=== PATIENT | female | born 1950 | race Caucasian/White ===

== ENCOUNTER → 2018-10-16 09:42 | Outpatient (CLI) | payer MEDICARE, OTHER, SELFPAY ==
--- NOTE | 2018-10-16 | DI.MG.S_ITS ---
BILATERAL DIGITAL SCREENING MAMMOGRAM 3D/2D WITH CAD POST LUMPECTOMY: 10/16/2018 CLINICAL: Routine screening. Personal history of left breast cancer. Comparison is made to exams dated: 08/20/2017 mammogram, 08/20/2016 mammogram, and 08/29/2015 mammogram - [facility]. The tissue of both breasts is heterogeneously dense. This may lower the sensitivity of mammography. Current study was also evaluated with a Computer Aided Detection (CAD) system. There are benign post operative findings in the left breast. No significant masses, calcifications, or other findings are seen in either breast. There has been no significant interval change. IMPRESSION: There is no mammographic evidence of malignancy. A 1 year screening mammogram is recommended. This exam was interpreted at Station ID: [id number]. NOTE: For mammograms, a report in lay terms will be sent to the patient. Approximately 15% of breast malignancies will not be visualized mammographically. In the management of a palpable breast mass, a negative mammogram must not discourage biopsy of a clinically suspicious lesion. Electronically Signed By: Henry silva/paulino:10/16/2018 16:59:04 letter sent: Normal Exam ACR BI-RADS Category 2: Benign Finding(s) 3342F
== END ==
PROVIDERS: Visit Provider Family Medicine
DX: Z12.31 Encounter for screening mammogram for malignant neoplasm of breast (principal)
CPT/HCPCS: 77063; 77067

== ENCOUNTER 2019-09-08 13:31 | Day surgery (SDC) | payer MEDICARE, OTHER, SELFPAY ==
[2019-09-08] VITALS (14 sets, daily range): BP systolic 144–190; BP diastolic 77–91; PULSE 60–73; RESP 10–16; TEMP 36–36.6; O2SAT 93–98; BMI 21.1
--- NOTE | 2019-09-08 | PATH_ITS ---
[facility] Accession Number: [id number] . 01 Material submitted: . PART A: cecum - CECAL POLYP PART B: gastrointestinal site - GASTRIC PYLORUS BIOPSIES PART C: gastrointestinal site - GASTRIC FUNDUS BIOPSIES PART D: esophagus, E-G Junction - GE JUNCTION BIOPSIES . 01 Clinical history: . SCREENING COLONOSCOPY . 02 Diagnosis: A. Cecum, Polyp, Biopsy: Tubular adenoma. . B. Stomach, Pylorus, Biopsy: Antral mucosa with mild chronic inflammation and intestinal metaplasia. Negative for Helicobacter by immunohistochemistry. Negative for dysplasia and malignancy. . C. Stomach, Fundus, Biopsies: Body-type mucosa with mild chronic gastritis. Negative for Helicobacter by immunohistochemistry. Negative for intestinal metaplasia. Negative for dysplasia and malignancy. . D. Gastroesohageal Junction, Biopsies: Squamocolumnar junctional mucosa with no diagnostic abnormality. Negative for intestinal metaplasia. Negative for dysplasia and malignancy. . [facility] 09/11/2019 1438 Local . 02 Electronically signed: . Marya Navarro MD, Pathologist NPI- [id number] . 01 Gross description: . Part A: CECAL POLYP: Received in formalin are 2 fragment(s) of paulino, soft tissue measuring 0.1 x 0.1 x 0.1 cm to 0.3 x 0.3 x 0.2 cm submitted entirely in 1 cassette(s) Part B: GASTRIC PYLORUS BIOPSIES: Received in formalin are 2 fragment(s) of paulino, soft tissue measuring 0.1 x 0.1 x 0.1 cm to 0.2 x 0.1 x 0.1 cm submitted entirely in 1 cassette(s) Part C: GASTRIC FUNDUS BIOPSIES: Received in formalin is 1 fragment(s) of paulino, soft tissue measuring 0.2 x 0.2 x 0.2 cm submitted entirely in 1 cassette(s) Part D: GE JUNCTION BIOPSIES: Received in formalin are multiple fragment(s) of paulino, soft tissue measuring 0.1 x 0.1 x 0.1 cm to 0.2 x 0.1 x 0.1 cm submitted entirely in 1 cassette(s) /[facility] 09/09/2019 1924 Local . 02 Microscopic: . B-C: Immunohistochemical stains for Helicobacter were performed on blocks B and C in order to evaluate for Helicobacter organisms. They are both negative. The control stain showed appropriate reactivity. . B-D: Alcian blue stains were performed to evaluate for intestinal metaplasia in blocks B-D and is positive in block B and negative in blocks C and D. The control stain showed appropriate reactivity. . * This test was developed and its performance characteristics determined by [employer]. It has not been cleared or approved by the U.S. Food and Drug Administration. The FDA has determined that such clearance or approval is not necessary. This test is used for clinical purposes. It should not be regarded as investigational or for research. . 02 Pathologist provided ICD-10: D12.0 . 02 CPT . 226929, 757049, 126675, 907989, 781342, 838022, 954316, D41017 Performed at: 01 [facility] [address] [id number] MD Henry Badillo MD Phone: [phone] Performed at: 02 [facility] [address] [place] [id number] MD Marya Navarro MD Phone: [phone]
[2019-09-08] MEDS: SODIUM CHLORIDE 0.9% 1,000 ML 200 ML IV ×2 (13:52→17:50)
--- NOTE | 2019-09-08 14:51 | PM.HP.1 ---
History of Present Illness History of Present Illness Date Patient Seen: 09/08/19 Time Patient Seen: 14:51 Chief complaint: [id number] SCREENING COLONOSCOPY W/EGD Narrative: This is a 68-year-old woman with history of colon polyps found on colonoscopy 3 years ago. She also has intermittent left lower quadrant pain, but does not recall a diagnosis of diverticulosis or diverticulitis. She takes psyllium husk every day as a fiber supplement. She denies any melena, hematochezia or unexplained weight loss. She complains of reflux symptoms for the past 5 months, but does not have a diagnosis of acid reflux. She has never had an upper endoscopy, and is not on a PPI. She has a heart murmur, but says she has never had any symptoms of chest pain, and has never had a heart attack or stroke. She feels she is otherwise relatively well. ROS: Thirteen system review is negative other than as mentioned in scanned in questionnaire and in HPI. PE: GENERAL: Well groomed and cooperative. Appears stated age. Answers questions promptly and appropriately. Vital signs noted. HENT: Normocephalic, atraumatic. Hearing intact. Oral mucosa is pink and moist. EYES: Conjunctiva pink, sclera white, no periorbital swelling. CARDIOVASCULAR: Regular rate. No pedal edema. RESPIRATORY: Non tachypneic, breathing comfortably on room air. GASTROINTESTINAL: Abdomen soft and non-distended GENITALURINARY: No flank tenderness. MUSCULOSKELETAL: Equal tone and mass bilaterally. SKIN: Warm, dry, soft, appropriate color for ethnicity. No other lesions, rashes, or wounds. NEURO: Alert and Oriented X 3. No gross sensory deficits, or cognitive issues. PSYCH: Appropriate affect and mood. Patient History Medical History Cataracts, bilateral (Chronic ~2017) Chicken pox (Resolved) CKD (chronic kidney disease) (Chronic) Essential hypertension (Chronic) Fractures (Resolved ~1971) Hearing loss (Chronic) Heart murmur (Acute) History of rheumatic fever (Acute) Hx of breast cancer (Resolved ~1999) Hyperlipidemia (Chronic) Measles (Resolved) Mumps (Resolved) Recurrent sinusitis (Chronic) Rheumatic fever (Resolved) Surgical History Amputation of finger (Resolved ~1969) Anesthesia (Resolved) History of colonoscopy (Acute) History of foot surgery (Resolved) S/P lumpectomy, left breast (Acute ~1999) Family & Social History Family History Father History of heart disease Grandfather History of heart disease Grandmother Blood disorder Grandfather History of heart disease Social History: household members spouse Tobacco & Substance use: Smoking Status Never smoker Meds Home Medications and Allergies Home Medications Medication Instructions Recorded Confirmed Type sodium,potassium,mag sulfates 17.5 177 ml PO DAILY #354 ml 08/19/19 Rx gram-3.13 gram-1.6 gram oral soln atorvastatin 10 mg PO DAILY 09/08/19 09/08/19 History Allergies Allergy/AdvReac Type Severity Reaction Status Date / Time shellfish derived AdvReac Severe severe Verified 09/08/19 14:03 abdominal pain Exam Vital Signs (past 8 hours): - 09/08/19 13:53 Temperature 97.4 F L Pulse Rate 70 Respiratory Rate 14 Blood Pressure 144/81 H Pulse Oximetry 98 Oxygen Delivery Method Room Air Assessment & Plan Assessment and plan (1) Symptoms of gastroesophageal reflux: Current visit: Yes Status: Acute (2) Colon polyps: Current visit: Yes Status: Acute Assessment & Plan narrative: Risks and benefits of diagnostic upper endoscopy, and surveillance colonoscopy were discussed with the patient including risk of perforation or bleeding. The patient desires to proceed with her EGD and colonoscopy procedures. Plan: Proceed with EGD and colonoscopy Time Spent With Patient Time with patient: 15-24 minutes Quality VTE Deep Vein Thrombosis/Pulmonary Embolism Present on Admission: No
[2019-09-08] MEDS: MIDAZOLAM 5 MG/5 ML VIAL IV (15:00)
[2019-09-08] MEDS: fentaNYL 250 MCG/5 ML INJ IV (15:00)
--- NOTE | 2019-09-08 16:15 | PM.OP.ENDO ---
Operative Date/Time/Diagnoses Date of procedure: 09/08/19 Time of procedure: 16:15 Pre-op diagnosis: Reflux symptoms, history of colon polyps Post-op diagnosis: other (reflux esophagitis, colon polyps, diverticulosis) Procedure & Clinicians Study performed: Surveillance colonoscopy, polypectomy with hot snare, diagnostic esophagogastroduodenoscopy, cold forceps biopsy of gastric antrum, gastric fundus, and gastroesophageal junction Same procedure as scheduled: Yes Indications: Reflux symptoms, personal history of colon polyps, abdominal pain Surgeon: Rhonda Field Procedure Notes SCOAP/Timeout: Performed Procedure in detail: The patient was brought to the room and placed in left lateral decubitus position with all bony prominences padded. A time-out was performed and then the patient was given procedural sedation starting with 3 mg of Versed and 100 mcg of fentanyl. Vitals were monitored throughout the procedure and remained stable. Once adequately sedated the procedure was begun. A bite block was placed to protect the patient's teeth lips and tongue. A gastric scope was passed over the tongue and into the oropharynx, but could not be easily passed into the esophagus. After several tries, the procedure was suspended, and we turned our attention to the colonoscopy procedure. A rectal exam was then performed revealing no abnormalities. The colonoscope was then introduced to the rectum and advanced to the cecum in the usual fashion. The cecum was identified by the appendiceal orifice, the mucosal try fold, and the ileocecal valve. A 1 cm sessile polyp was seen in cecum. It was removed with hot snare. The The scope was then retracted while rotating side to side and examining each mucosal fold. The patient was found to have moderate diverticulosis especially in the sigmoid and descending colon. She had several false passages in very large mouth diverticula. She had no signs of active diverticulitis. At the conclusion of the procedure retroflexion was performed and small grade 1-2 internal hemorrhoids without stigmata of bleeding were seen. The scope was then withdrawn from the rectum the procedure was concluded. My colleague, Dr. Gunderson, then joined me to give a 2nd attempt at intubating the esophagus. He was able to pass the gastric scope over the tongue and into the esophagus, at that point I took of the procedure and continued the examination of the stomach, esophagus and duodenum. The duodenum appeared normal. The ampulla was seen with small amount of bile in the 2nd part of the duodenum. The gastric antrum and pylorus showed signs of mild gastritis. Biopsies were taken from the gastric antrum, pylorus, and fundus. I then retroflexed the scope and saw a moderate sized Hill grade 2 hiatal hernia which was 3cm by 3cm with a patulous LES, gaping around the scope. The crural narrowing of the hiatus (35 cm from incisors) was approximately 3 cm below the Z line of the GE junction (32cm from incisors), which was irregular and had some chronic looking inflammatory tissue consistent with reflux esophagitis. Biopsies were taken from the distal esophagus at the GE junction. There was a tongue of salmon-colored mucosa coming up into the esophagus about 1 cm. This was also biopsied. The mucosa of the mid and upper esophagus was intact without signs of esophagitis. The gastroscope was removed from the esophagus suctioning on the way out and removed from the patient's mouth. The patient tolerated the procedure well was transferred to the PACU in stable condition. Scope withdrawal time: 15 Sedation minutes: 75 Findings: diverticulosis, gastritis, polyp and other findings (Esophagitis, hiatal hernia) Specimen(s): other (Cecal polyp, gastric biopsies, esophageal biopsies) Complications: none Impression: Esophagus, gastritis, hiatal hernia, diverticulosis, colon polyp Post-procedure Recommendations: Colonscopy in 5 years (For personal history of polyps and new polyps on this procedure) and Other recommendation (Further follow-up pending pathology results) Follow up: as needed Disposition: PACU
--- NOTE | 2019-09-08 16:54 | SUR.PHASEI ---
Tolerating ice chips and small amounts of juice without difficulty. Denies any nausea, pain or SOB. Remains drowsy but arousable.
--- NOTE | 2019-09-08 17:33 | SUR.PHASEII ---
ASSUMED CARE OF PT AT THIS TIME. PT SITTING UP IN BED WITH AT BEDSIDE. PT HAD ONE EPISODE OF NAUSEA/EMESIS APPROX 100ML, ASIHSH IN COLOR. CALLED MD DRAINLAYER AND RECEIVED VERBAL ORDER FOR ZOFRAN. PT ALSO GIVEN QUEEZE EASE.
[2019-09-08] MEDS: ONDANSETRON 4 MG/2 ML INJ IV (17:38)
== END 2019-09-08 18:19 | disposition home or self-care (01) ==
PROVIDERS: PCP Family Medicine; Visit Provider Surgery
PROC: 0DJD8ZZ Inspection of Lower Intestinal Tract, Via Natural or Artificial Opening Endoscopic (ICD-10-PCS; CPT 45378; 2019-09-08 15:00)
PROC: 0DJ08ZZ Inspection of Upper Intestinal Tract, Via Natural or Artificial Opening Endoscopic (ICD-10-PCS; CPT 43235; 2019-09-08 15:00)
DX: Z12.11 Encounter for screening for malignant neoplasm of colon (principal); Z86.010 Personal history of colon polyps; R19.8 Other specified symptoms and signs involving the digestive system and abdomen; K57.30 Diverticulosis of large intestine without perforation or abscess without bleeding; K21.0 Gastro-esophageal reflux disease with esophagitis; K44.9 Diaphragmatic hernia without obstruction or gangrene; K64.1 Second degree hemorrhoids; D12.0 Benign neoplasm of cecum; K29.50 Unspecified chronic gastritis without bleeding; K31.89 Other diseases of stomach and duodenum
CPT/HCPCS: 45385; 43239; 99152; 99153; J2250; J2405; J3010

== ENCOUNTER → 2019-10-19 11:50 | Outpatient (CLI) | payer MEDICARE, OTHER, SELFPAY ==
--- NOTE | 2019-10-19 | DI.MG.S_ITS ---
BILATERAL DIGITAL SCREENING MAMMOGRAM 3D/2D WITH CAD POST LUMPECTOMY: 10/19/2019 CLINICAL: Routine screening. Personal history of left breast cancer. Comparison is made to exams dated: 10/16/2018 mammogram - [facility], 08/20/2017 mammogram, 08/20/2016 mammogram, and 08/29/2015 mammogram - [facility]. The tissue of both breasts is heterogeneously dense. This may lower the sensitivity of mammography. Current study was also evaluated with a Computer Aided Detection (CAD) system. There are benign post operative findings in the left breast. No significant masses, calcifications, or other findings are seen in either breast. There has been no significant interval change. IMPRESSION: There is no mammographic evidence of malignancy. A 1 year screening mammogram is recommended. This exam was interpreted at Station ID: [id number]. NOTE: For mammograms, a report in lay terms will be sent to the patient. Approximately 15% of breast malignancies will not be visualized mammographically. In the management of a palpable breast mass, a negative mammogram must not discourage biopsy of a clinically suspicious lesion. Electronically Signed By: Scott becerra/paulino:10/19/2019 18:17:21 letter sent: Normal Exam ACR BI-RADS Category 2: Benign Finding(s) 3342F
== END ==
PROVIDERS: PCP Family Medicine; Visit Provider Family Medicine
DX: Z12.31 Encounter for screening mammogram for malignant neoplasm of breast (principal); Z85.3 Personal history of malignant neoplasm of breast
CPT/HCPCS: 77063; 77067

== ENCOUNTER → 2020-09-19 10:28 | Outpatient (CLI) | payer MEDICARE, OTHER, SELFPAY ==
[2020-09-19 11:01] LABS: COVID19 -Nasal RAPID Negative (Negative)
== END ==
PROVIDERS: PCP Family Medicine; Visit Provider Surgery
DX: Z01.812 Encounter for preprocedural laboratory examination (principal); Z11.59 Encounter for screening for other viral diseases
CPT/HCPCS: 87635; C9803

== ENCOUNTER 2020-09-20 14:19 | Day surgery (SDC) | payer MEDICARE, OTHER, SELFPAY ==
[2020-09-20] VITALS (8 sets, daily range): BP systolic 108–144; BP diastolic 60–74; PULSE 61–70; RESP 9–16; TEMP 36.6–37.6; O2SAT 94–99
--- NOTE | 2020-09-20 | PATH_ITS ---
[facility] Accession Number: [id number] . 01 Material submitted: . PART A: duodenum - DUODENUM BIOPSY PART B: gastrointestinal site - STOMACH BIOPSY PART C: esophagus - ESOPHAGEAL BIOPSY . 01 Clinical history: . EGD . 02 Diagnosis: A. Duodenum, Biopsy: Superficial fragments of duodenal mucosa with no diagnostic abnormality. Negative for active inflammation, features of sprue, dysplasia, and malignancy. . B. Stomach, Biopsy: Antral mucosa with no diagnostic abnormality. One fragment of small bowel mucosa with no significant diagnostic abnormality. Negative for Helicobacter by immunohistochemistry. Negative for intestinal metaplasia in the gastric mucosa. Negative for dysplasia and malignancy. . C. Esophagus, Biopsy: Squamocolumnar junctional mucosa with chronic inflammation. Negative for intestinal metaplasia. Negative for dysplasia and malignancy. [facility] 09/23/2020 1525 Local . 02 Electronically signed: . Marya Navarro MD, Pathologist NPI- [id number] . 01 Gross description: . Part A: DUODENUM BIOPSY: Received in formalin are minute fragment(s) of paulino, soft tissue measuring 0.2 x 0.1 x 0.1 cm in aggregate submitted entirely in 1 cassette(s) Part B: STOMACH BIOPSY: Received in formalin are 2 fragment(s) of paulino, soft tissue measuring 0.4 x 0.2 x 0.1 cm to 0.3 x 0.2 x 0.1 cm submitted entirely in 1 cassette(s) Part C: ESOPHAGEAL BIOPSY: Received in formalin are 2 fragment(s) of paulino, soft tissue measuring 0.3 x 0.2 x 0.2 cm to 0.1 x 0.1 x 0.1 cm submitted entirely in 1 cassette(s) /[facility] 09/21/2020 0812 Local . 02 Microscopic: . B. An immunohistochemical stain was performed to evaluate for Helicobacter organisms and is negative. The control stain showed appropriate reactivity. . C. An AB/PAS stain was performed to evaluate for intestinal metaplasia and is negative. The control stain showed appropriate reactivity. . * This test was developed and its performance characteristics determined by [facility]. It has not been cleared or approved by the U.S. Food and Drug Administration. The FDA has determined that such clearance or approval is not necessary. This test is used for clinical purposes. It should not be regarded as investigational or for research. . 02 Pathologist provided ICD-10: K29.70 . 02 CPT . 867810, 203712, 436263, U04460, 901939 Performed at: 01 [facility] [address] [address] [id number] MD Henry Badillo MD Phone: [phone] Performed at: 02 [facility] [address] [place], [place] [id number] MD Marya Navarro MD Phone: [phone]
[2020-09-20] MEDS: SODIUM CHLORIDE 0.9% 1,000 ML 200 ML IV (14:45)
--- NOTE | 2020-09-20 15:14 | P.HP_ITS ---
History of Present Illness History of Present Illness Date Patient Seen: 09/20/20 Time Patient Seen: 15:15 Chief complaint: EGD Narrative: This is a 69-year-old woman with history of intestinal metaplasia found on EGD one year ago. She is on Famotidine, and denies any heartburn symptoms. She denies any anemia, melena, unexplained abdominal pain, or other changes in her medical conditions. She continues to have allergies, and she says she was told by her forensic science examiner that it was due to acid reflux. ROS: Sinus drainage, GERD, headaches, uses hearing aids. Thirteen system review is negative other than as mentioned in scanned in questionnaire and in HPI. PE: GENERAL: Well groomed and cooperative. Appears stated age. Answers questions promptly and appropriately. Vital signs noted. HENT: Normocephalic, atraumatic. Hearing intact. Oral mucosa is pink and moist. EYES: Conjunctiva pink, sclera white, no periorbital swelling. CARDIOVASCULAR: Regular rate. No pedal edema. RESPIRATORY: Non tachypneic, breathing comfortably on room air. GASTROINTESTINAL: Abdomen soft and non-distended GENITALURINARY: No flank tenderness. MUSCULOSKELETAL: Equal tone and mass bilaterally. SKIN: Warm, dry, soft, appropriate color for ethnicity. No other lesions, r ashes, or wounds. NEURO: Alert and Oriented X 3. No gross sensory deficits, or cognitive issues. PSYCH: Appropriate affect and mood. Patient History Medical History Cataracts, bilateral (~2017) Chicken pox CKD (chronic kidney disease) Colon polyps Essential hypertension Fractures (~1971) Hearing loss Heart murmur History of rheumatic fever Hx of breast cancer (~1999) Hyperlipidemia Measles Mumps Recurrent sinusitis Rheumatic fever Surgical History Amputation of finger (~1969) Anesthesia History of colonoscopy History of foot surgery S/P lumpectomy, left breast (~1999) Family & Social History Family History Father History of heart disease Grandfather History of heart disease Grandmother Blood disorder Grandfather History of heart disease Social History: household members spouse Tobacco & Substance use: Smoking Status Never smoker alcohol intake frequency a few times a month Substance Use Type does not use Meds Home Medications and Allergies Home Medications Medication Instructions Recorded Confirmed Type atorvastatin 10 mg PO DAILY 09/08/19 09/20/20 History famotidine 20 mg tablet 20 mg PO BID #60 tab 09/22/19 09/20/20 Rx Allergies Allergy/AdvReac Type Severity Reaction Status Date / Time shellfish derived AdvReac Severe severe Verified 09/20/20 14:32 abdominal pain Exam Vital Signs (past 8 hours): - 09/20/20 14:34 Temperature 97.8 F Pulse Rate 70 Respiratory Rate 16 Blood Pressure 144/74 H Pulse Oximetry 98 Oxygen Delivery Method Room Air Assessment & Plan Assessment and plan (1) Gastritis: Status: Acute (2) Intestinal metaplasia of gastric mucosa: Status: Acute (3) Symptoms of gastroesophageal reflux: Status: Acute (4) Recurrent sinusitis: Status: Chronic Assessment & Plan narrative: Risks and benefits of screening EGD and biopsy were discussed with the patient including risk of bleeding, perforation, need for additional procedures, risks of anesthesia. The patient desires to proceed with the upper endoscopy procedure. COVID-19 COVID-19 status: Negative Result date/Date tested (Pos, Neg/Pending): 09/19/20 Time Spent With Patient Time with patient: 15-24 minutes Quality VTE Deep Vein Thrombosis/Pulmonary Embolism Present on Admission: No
--- NOTE | 2020-09-20 15:23 | PM.OP.ENDO ---
Operative Date/Time/Diagnoses Date of procedure: 09/20/20 Time of procedure: 15:24 Pre-op diagnosis: GERD, intestinal metaplasia of stomach, hiatal hernia Post-op diagnosis: same Procedure & Clinicians Study performed: Upper endoscopy Procedural sedation performed by the endoscopist Biopsy of duodenum, stomach, distal esophagus Same procedure as scheduled: Yes Indications: Surveillance of intestinal metaplasia stomach Surgeon: Rhonda Field Procedure Notes SCOAP/Timeout: Performed Procedure in detail: The patient was brought to the room and placed in left lateral decubitus position with all bony prominences padded. A time-out was performed and then the patient was given procedural sedation starting with 3 mg of Versed and 100 mcg of fentanyl. Vitals were monitored throughout the procedure and remained stable. Once adequately sedated the procedure was begun. A bite block was placed to protect the patient's teeth lips and tongue. The lubricated gastroscope was passed through the bite block and across the tongue and into the esophagus without incident. A tubular view of the esophagus was maintained as the scope was advanced through the esophagus and into the stomach. The scope was advanced through the stomach and to the pylorus. The scope was gently popped through the pylorus and into the duodenal bulb. The scope was flexed and advanced into the second and third portions of the duodenum. The duodenum and duodenal bulb appeared normal. The scope was withdrawn into the stomach. The stomach appeared fairly normal, with only mild endoscopic gastritis. Biopsies were taken of the duodenum and the stomach. I then retroflexed the scope and saw a moderate sized Hill grade 2 hiatal hernia which was 3cm by 3cm with a patulous LES, gaping around the scope. The crural narrowing of the hiatus (35 cm from incisors) was approximately 3 cm below the Z line of the GE junction (32cm from incisors). There was a tongue of salmon-colored mucosa coming up into the esophagus less than 1 cm. This was also biopsied. The mucosa of the mid and upper esophagus was intact without signs of esophagitis. The gastroscope was removed from the esophagus suctioning on the way out and removed from the patient's mouth. Patient tolerated the procedure well and was transferred to the PACU in stable condition. Sedation minutes: 8 Findings: gastritis and hiatal hernia Specimen(s): other (Biopsies of duodenum, stomach, distal esophagus) Complications: none Impression: Improved gastritis, stable appearance of distal esophagus and duodenum, unchanged appearance of hiatal hernia Post-procedure Recommendations: Other recommendation (Timing of surveillance EGD or other recommendation will depend on biopsy results) Follow up: weeks (two) Disposition: PACU
[2020-09-20] MEDS: fentaNYL 250 MCG/5 ML INJ IV (15:30)
[2020-09-20] MEDS: MIDAZOLAM 5 MG/5 ML VIAL IV (15:30)
[2020-09-20] MEDS: LIDOCAINE 4% SOLN 50 ML 20 ML TOP (15:31)
== END 2020-09-20 16:20 | disposition home or self-care (01) ==
PROVIDERS: PCP Family Medicine; Referring Provider Family Medicine; Visit Provider Surgery
PROC: 0DJ08ZZ Inspection of Upper Intestinal Tract, Via Natural or Artificial Opening Endoscopic (ICD-10-PCS; CPT 43235; principal; 2020-09-20 15:15)
DX: K21.00 Gastro-esophageal reflux disease with esophagitis, without bleeding (principal); J32.9 Chronic sinusitis, unspecified; K31.89 Other diseases of stomach and duodenum; K44.9 Diaphragmatic hernia without obstruction or gangrene
CPT/HCPCS: 43239; 99152; J2250; J3010

== ENCOUNTER → 2020-10-26 11:04 | Outpatient (CLI) | payer MEDICARE, OTHER, SELFPAY ==
--- NOTE | 2020-10-26 | DI.MG.S_ITS ---
BILATERAL DIGITAL SCREENING MAMMOGRAM 3D/2D WITH CAD: 10/26/2020 CLINICAL: Routine screening. Personal history of left breast cancer. Comparison is made to exams dated: 10/19/2019 mammogram, 10/16/2018 mammogram - [facility], and 08/20/2017 mammogram - [facility]. The tissue of both breasts is heterogeneously dense. This may lower the sensitivity of mammography. Current study was also evaluated with a Computer Aided Detection (CAD) system. There are benign post operative findings in the left breast. No significant masses, calcifications, or other findings are seen in either breast. There has been no significant interval change. IMPRESSION: BENIGN There is no mammographic evidence of malignancy. A 1 year screening mammogram is recommended. This exam was interpreted at Station ID: [id number]. NOTE: For mammograms, a report in lay terms will be sent to the patient. Approximately 15% of breast malignancies will not be visualized mammographically. In the management of a palpable breast mass, a negative mammogram must not discourage biopsy of a clinically suspicious lesion. Electronically Signed By: Henry silva/paulino:10/26/2020 13:19:34 letter sent: Normal Exam ACR BI-RADS Category 2: Benign Finding(s) 3342F
[2020-10-26 12:32] LABS: Alanine Aminotransferase 25 IU/L (<35); Albumin 3.9 g/dL (3.5-5.0); Albumin Globulin Ratio 1.1 (1.0-2.8); Alkaline Phosphatase 99 U/L (38-126); Aspartate Aminotransferase 44 IU/L (14-36); BUN Creatinine Ratio 14.2 (6-22); Bilirubin Total 0.5 mg/dL (0.2-1.3); Blood Urea Nitrogen 21 mg/dL (7-17); Calcium 8.7 mg/dL (8.4-10.2); Carbon Dioxide 27 mmol/L (22-32); Chloride 109 mmol/L (98-107); Cholesterol 138 mg/dL (140-199); Estimated Glomerular Filt Rate 35.1 mL/min (>60); Globulin 3.7 g/dL (1.7-4.1); Glucose 93 mg/dL (80-110); HDL Cholesterol 49 mg/dL (40-60); HEMOLYSIS < 15 (0-50); LDL Cholesterol Calculated 60 mg/dL (<100); Potassium 4.4 mmol/L (3.4-5.1); Sodium 139 mmol/L (137-145); Total Protein 7.6 g/dL (6.3-8.2); Triglycerides 143 mg/dL (35-150)
== END ==
PROVIDERS: PCP Family Medicine; Referring Provider Family Medicine; Visit Provider Family Medicine
DX: Z12.31 Encounter for screening mammogram for malignant neoplasm of breast (principal); Z85.3 Personal history of malignant neoplasm of breast; I12.9 Hypertensive chronic kidney disease with stage 1 through stage 4 chronic kidney disease, or unspecified chronic kidney disease; N18.9 Chronic kidney disease, unspecified; E78.5 Hyperlipidemia, unspecified
CPT/HCPCS: 36415; 77063; 77067; 80053; 80061

== ENCOUNTER → 2021-06-06 16:12 | Outpatient (CLI) | payer MEDICARE, OTHER, SELFPAY ==
[2021-06-06 16:42] LABS: COVID19 -Nasal RAPID Negative (Negative)
== END ==
PROVIDERS: PCP Family Medicine; Visit Provider Physician Assistant
DX: R05 Cough (principal); R09.81 Nasal congestion; R50.9 Fever, unspecified; R51.9 Headache, unspecified
CPT/HCPCS: 87635

== ENCOUNTER → 2021-09-01 14:05 | Outpatient (CLI) | payer MEDICARE, OTHER, SELFPAY ==
[2021-09-01 14:31] LABS: Add Manual Diff / Slide Review NO; Basophils Absolute Auto 100 /uL (0-100); Basophils Percent Auto 1.5 % (0-2); Eosinophils Absolute Auto 100 /uL (0-450); Eosinophils Percent Auto 1.4 % (2-4); Hemoglobin 13.2 g/dL (12.0-16.0); Lymphocytes Absolute Auto 1300 /uL (1100-4500); Lymphocytes Percent Auto 34.2 % (25-40); Mean Corpuscular HGB Conc 33.9 % (30-36); Mean Corpuscular Hemoglobin 31.4 PG (26-34); Mean Corpuscular Volume 92.4 fL (80-100); Monocytes Absolute Auto 500 /uL (0-900); Monocytes Percent Auto 12.7 % (3-14); Neutrophils Absolute Auto 1900 /uL (1500-7000); Neutrophils Percent Auto 50.2 % (50-75); Platelet Count 182 X10^3/uL (150-400); Red Blood Cell Count 4.21 X10^6/uL (4.0-5.2); Red Cell Distribution Width 13.3 % (11.6-14.8); White Blood Cell Count 3.8 X10^3/uL (4.5-11.0)
[2021-09-01 15:01] LABS: Albumin 4.2 g/dL (3.5-5.0); BUN Creatinine Ratio 17.6 (6-22); Blood Urea Nitrogen 26 mg/dL (7-17); Calcium 9.1 mg/dL (8.4-10.2); Carbon Dioxide 20 mmol/L (22-32); Chloride 103 mmol/L (98-107); Glucose 94 mg/dL (80-110); HEMOLYSIS < 15 (0-50); Phosphorous 4.4 mg/dL (2.8-4.1); Sodium 135 mmol/L (137-145)
[2021-09-02 09:48] LABS: Parathyroid Hormone Int 83 pg/mL (15-65)
== END ==
PROVIDERS: PCP Family Medicine; Referring Provider Internal Medicine Nephrology; Visit Provider Internal Medicine Nephrology
DX: N18.32 Chronic kidney disease, stage 3b (principal); Z23 Encounter for immunization
CPT/HCPCS: 0013A; 36415; 80069; 83970; 85025; 91301

== ENCOUNTER → 2021-09-01 14:42 | Outpatient (CLI) | payer MEDICARE, OTHER, SELFPAY ==
[2021-09-01] MEDS: COVID-19 VACC #3, MRNA(MOD) 50 MCG/0.25 ML VIAL IM (14:47)
== END ==
PROVIDERS: PCP Family Medicine; Visit Provider Internal Medicine
DX: Z23 Encounter for immunization (principal)
CPT/HCPCS: 0013A; 91301

== ENCOUNTER → 2021-10-31 11:15 | Outpatient (CLI) | payer MEDICARE, OTHER, SELFPAY ==
--- NOTE | 2021-10-31 11:16 | DI.MG.S_ITS ---
BILATERAL DIGITAL SCREENING MAMMOGRAM 3D/2D WITH CAD: 10/31/2021 CLINICAL: Routine screening. Family history of breast cancer. Breast cancer. Comparison is made to exams dated: 10/26/2020 mammogram, 10/19/2019 mammogram, and 10/16/2018 mammogram - [facility]. The tissue of both breasts is heterogeneously dense. This may lower the sensitivity of mammography. Current study was also evaluated with a Computer Aided Detection (CAD) system. There are benign calcifications in the left breast. There also are benign post operative findings in the left breast. No significant masses, calcifications, or other findings are seen in either breast. There has been no significant interval change. IMPRESSION: BENIGN There is no mammographic evidence of malignancy. A 1 year screening mammogram is recommended. This exam was interpreted at Station ID: [id number]. NOTE: For mammograms, a report in lay terms will be sent to the patient. Approximately 15% of breast malignancies will not be visualized mammographically. In the management of a palpable breast mass, a negative mammogram must not discourage biopsy of a clinically suspicious lesion. Electronically Signed By: Mali szymanski/paulino:10/31/2021 17:50:40 letter sent: Normal Exam ACR BI-RADS Category 2: Benign Finding(s) 3342F
== END ==
PROVIDERS: PCP Family Medicine; Referring Provider Family Medicine; Visit Provider Family Medicine
DX: Z12.31 Encounter for screening mammogram for malignant neoplasm of breast (principal); Z85.3 Personal history of malignant neoplasm of breast; Z80.3 Family history of malignant neoplasm of breast
CPT/HCPCS: 77063; 77067

== ENCOUNTER → 2022-03-02 11:34 | Outpatient (CLI) | payer MEDICARE, OTHER, SELFPAY ==
[2022-03-02 12:36] LABS: Add Manual Diff / Slide Review NO; Basophils Absolute Auto 0 /uL (0-100); Eosinophils Absolute Auto 0 /uL (0-450); Eosinophils Percent Auto 1.1 % (2-4); Hematocrit 37.7 % (36-46); Hemoglobin 12.6 g/dL (12.0-16.0); Lymphocytes Absolute Auto 900 /uL (1100-4500); Lymphocytes Percent Auto 25.1 % (25-40); Mean Corpuscular HGB Conc 33.3 % (30-36); Monocytes Absolute Auto 500 /uL (0-900); Monocytes Percent Auto 13.4 % (3-14); Neutrophils Absolute Auto 2200 /uL (1500-7000); Neutrophils Percent Auto 59.4 % (50-75); Platelet Count 164 X10^3/uL (150-400); Red Blood Cell Count 4.05 X10^6/uL (4.0-5.2); Red Cell Distribution Width 13.2 % (11.6-14.8); White Blood Cell Count 3.7 X10^3/uL (4.5-11.0)
[2022-03-02 13:02] LABS: BUN Creatinine Ratio 12.6 (6-22); Blood Urea Nitrogen 20 mg/dL (7-17); Calcium 9.3 mg/dL (8.4-10.2); Carbon Dioxide 24 mmol/L (22-32); Chloride 105 mmol/L (98-107); Estimated Glomerular Filt Rate 35 mL/min (>60); Glucose 97 mg/dL (80-110); HEMOLYSIS < 15 (0-50); Phosphorous 4.3 mg/dL (2.8-4.1); Potassium 4.4 mmol/L (3.4-5.1); Sodium 138 mmol/L (137-145)
[2022-03-02 14:19] LABS: Appearance Urine UA SL CLOUDY; Bilirubin Urine UA NEGATIVE (NEGATIVE); Glucose Urine UA NEGATIVE (Negative); Ketones Urine UA NEGATIVE (NEGATIVE); Leukocyte Esterase Urine UA 3+ (NEGATIVE); Nitrite Urine UA NEGATIVE (Negative); Occult Blood Urine UA TRACE-LYSED (Negative); Protein Urine UA NEGATIVE (Negative); Specific Gravity Urine UA <=1.005 (1.000-1.035); Urobilinogen Urine UA 0.2 E.U./dL (0.2)
[2022-03-02 14:23] LABS: Color Urine UA Straw
[2022-03-02 14:39] LABS: Bacteria Urine Moderate (10-30); Culture Indicated Urine Cult Not Indicated; RBC Urine 1-5/HPF (0-5/HPF); Squamous Epithelial Cell Urine 10-30 /HPF (0-5/HPF); WBC Urine 10-30/HPF (0-5/HPF)
[2022-03-02 15:02] LABS: Creatinine Urine Random 25.1 mg/dL; Protein (Total) Urine Random 19 mg/dL (0-12); Protein Creatinine Ratio Urine 0.75 GRAM/24H
[2022-03-03 07:36] LABS: Parathyroid Hormone Int 52 pg/mL (15-65)
== END ==
PROVIDERS: PCP Family Medicine; Referring Provider Internal Medicine Nephrology; Visit Provider Internal Medicine Nephrology
DX: N18.32 Chronic kidney disease, stage 3b (principal)
CPT/HCPCS: 36415; 80069; 81001; 82570; 83970; 84156; 85025

== ENCOUNTER → 2022-08-31 10:23 | Outpatient (CLI) | payer MEDICARE, OTHER, SELFPAY ==
[2022-08-31 11:25] LABS: Hematocrit 37.3 % (36-46); Hemoglobin 12.9 g/dL (12.0-16.0); Mean Corpuscular HGB Conc 34.6 % (30-36); Mean Corpuscular Hemoglobin 31.5 PG (26-34); Platelet Count 169 X10^3/uL (150-400); Red Blood Cell Count 4.09 X10^6/uL (4.0-5.2); Red Cell Distribution Width 13.3 % (11.6-14.8); White Blood Cell Count 3.1 X10^3/uL (4.5-11.0)
[2022-08-31 11:50] LABS: Albumin 3.9 g/dL (3.5-5.0); BUN Creatinine Ratio 17.5 (6-22); Blood Urea Nitrogen 22 mg/dL (7-17); Calcium 9.2 mg/dL (8.4-10.2); Carbon Dioxide 22 mmol/L (22-32); Chloride 104 mmol/L (98-107); Estimated Glomerular Filt Rate 46 mL/min (>60); Glucose 96 mg/dL (80-110); HEMOLYSIS < 15 (0-50); Phosphorous 3.8 mg/dL (2.8-4.1); Potassium 4.1 mmol/L (3.4-5.1); Sodium 138 mmol/L (137-145)
[2022-08-31 13:49] LABS: Appearance Urine UA CLEAR; Bilirubin Urine UA NEGATIVE (NEGATIVE); Color Urine UA YELLOW; Glucose Urine UA NEGATIVE (Negative); Ketones Urine UA NEGATIVE (NEGATIVE); Leukocyte Esterase Urine UA TRACE (NEGATIVE); Nitrite Urine UA NEGATIVE (Negative); Occult Blood Urine UA TRACE-LYSED (Negative); Protein Urine UA NEGATIVE (Negative); Specific Gravity Urine UA <=1.005 (1.000-1.035); Urobilinogen Urine UA 0.2 E.U./dL (0.2)
[2022-08-31 13:56] LABS: pH Urine UA 5.5 (4.5-8.0)
[2022-08-31 13:57] LABS: RBC Urine 0-1/HPF (0-5/HPF); WBC Urine 1-5/HPF (0-5/HPF)
[2022-08-31 13:58] LABS: Amorphous Sediment Urine 1+; Bacteria Urine Occasional (0-1); Culture Indicated Urine Specimen Cultured; Squamous Epithelial Cell Urine 1-5 /HPF (0-5/HPF)
[2022-08-31 15:38] LABS: Creatinine Urine Random 25.7 mg/dL; Protein (Total) Urine Random 24 mg/dL (0-12); Protein Creatinine Ratio Urine 0.93 GRAM/24H
[2022-09-02 08:46] LABS: Parathyroid Hormone Int 55 pg/mL (15-65)
== END ==
PROVIDERS: PCP Family Medicine; Referring Provider Internal Medicine Nephrology; Visit Provider Internal Medicine Nephrology
DX: N18.32 Chronic kidney disease, stage 3b (principal)
CPT/HCPCS: 36415; 80069; 81003; 81015; 82570; 83970; 84156; 85027; 87086

== ENCOUNTER → 2022-11-01 12:29 | Outpatient (CLI) | payer MEDICARE, OTHER, SELFPAY ==
--- NOTE | 2022-11-01 | DI.MG.S_ITS ---
BILATERAL DIGITAL SCREENING MAMMOGRAM 3D/2D WITH CAD: 11/01/2022 CLINICAL: Routine screening. Personal history of left breast cancer. Family history of breast cancer. Comparison is made to exams dated: 10/31/2021 mammogram, 10/26/2020 mammogram, and 10/19/2019 mammogram - [facility]. Both breasts are heterogeneously dense, which may obscure small masses (category c / 51-75% glandular tissue). Current study was also evaluated with a Computer Aided Detection (CAD) system. There are benign calcifications in the left breast. There also are benign post operative findings in the left breast. No significant masses, calcifications, or other findings are seen in either breast. There has been no significant interval change. IMPRESSION: BENIGN There is no mammographic evidence of malignancy. A 1 year screening mammogram is recommended. This exam was interpreted at Station ID: [id number]. NOTE: For mammograms, a report in lay terms will be sent to the patient. Approximately 15% of breast malignancies will not be visualized mammographically. In the management of a palpable breast mass, a negative mammogram must not discourage biopsy of a clinically suspicious lesion. Electronically Signed By: Rojas Sosa M.D., jr/paulino:11/01/2022 13:29:47 letter sent: Normal Exam ACR BI-RADS Category 2: Benign Finding(s) 3342F
== END ==
PROVIDERS: PCP Family Medicine; Referring Provider Family Medicine; Visit Provider Family Medicine
DX: Z12.31 Encounter for screening mammogram for malignant neoplasm of breast (principal); Z85.3 Personal history of malignant neoplasm of breast; Z80.3 Family history of malignant neoplasm of breast
CPT/HCPCS: 77063; 77067

== ENCOUNTER → 2023-03-21 10:15 | Outpatient (CLI) | payer MEDICARE, OTHER, SELFPAY ==
[2023-03-21 10:57] LABS: Appearance Urine UA CLEAR; Bilirubin Urine UA NEGATIVE (NEGATIVE); Color Urine UA YELLOW; Glucose Urine UA NEGATIVE (Negative); Ketones Urine UA NEGATIVE (NEGATIVE); Leukocyte Esterase Urine UA 1+ (NEGATIVE); Nitrite Urine UA NEGATIVE (Negative); Occult Blood Urine UA NEGATIVE (Negative); Protein Urine UA NEGATIVE (Negative); Specific Gravity Urine UA <=1.005 (1.000-1.035); Urobilinogen Urine UA 0.2 E.U./dL (0.2)
[2023-03-21 11:05] LABS: RBC Urine None Seen (0-5/HPF); WBC Urine 1-5/HPF (0-5/HPF)
[2023-03-21 11:06] LABS: Amorphous Sediment Urine 2+; Bacteria Urine Occasional (0-1); Culture Indicated Urine Specimen Cultured; Squamous Epithelial Cell Urine 1-5 /HPF (0-5/HPF)
[2023-03-21 11:25] LABS: Basophils Absolute Auto 0 /uL (0-100); Basophils Percent Auto 0.8 % (0-2); Eosinophils Absolute Auto 0 /uL (0-450); Hematocrit 34.8 % (36-46); Hemoglobin 11.8 g/dL (12.0-16.0); Lymphocytes Absolute Auto 1800 /uL (1100-4500); Mean Corpuscular HGB Conc 33.9 % (30-36); Mean Corpuscular Hemoglobin 30.5 PG (26-34); Mean Corpuscular Volume 89.9 fL (80-100); Monocytes Absolute Auto 600 /uL (0-900); Neutrophils Absolute Auto 1700 /uL (1500-7000); Neutrophils Percent Auto 40.2 % (50-75); Platelet Count 172 X10^3/uL (150-400); Red Blood Cell Count 3.88 X10^6/uL (4.0-5.2); White Blood Cell Count 4.2 X10^3/uL (4.5-11.0)
[2023-03-21 12:04] LABS: Albumin 3.8 g/dL (3.5-5.0); BUN Creatinine Ratio 14.3 (6-22); Blood Urea Nitrogen 21 mg/dL (7-17); Calcium 8.8 mg/dL (8.4-10.2); Carbon Dioxide 21 mmol/L (22-32); Chloride 99 mmol/L (98-107); Estimated Glomerular Filt Rate 38 mL/min (>60); Glucose 99 mg/dL (80-110); HEMOLYSIS < 15 (0-50); Phosphorous 4.1 mg/dL (2.8-4.1); Potassium 4.5 mmol/L (3.4-5.1); Sodium 131 mmol/L (137-145)
[2023-03-21 12:20] LABS: Add Manual Diff / Slide Review SLIDE REVIEW
[2023-03-21 12:21] LABS: Platelet Estimate Adequate on smear; Reactive Lymphocytes 1+
[2023-03-21 12:22] LABS: RBC Morphology Normal Morphology
[2023-03-21 15:04] LABS: Creatinine Urine Random 50.4 mg/dL; Protein (Total) Urine Random 24 mg/dL (0-12); Protein Creatinine Ratio Urine 0.47 GRAM/24H
[2023-03-23 07:03] LABS: Parathyroid Hormone Int 58 pg/mL (15-65)
== END ==
PROVIDERS: PCP Family Medicine; Referring Provider Internal Medicine Nephrology; Visit Provider Internal Medicine Nephrology
DX: N18.31 Chronic kidney disease, stage 3a (principal)
CPT/HCPCS: 36415; 80069; 81001; 82570; 83970; 84156; 85025; 87086

== ENCOUNTER 2023-08-08 11:40 | Day surgery (SDC) | payer MEDICARE, OTHER, SELFPAY ==
--- NOTE | 2023-08-08 | PATH_ITS ---
[facility] Accession Number: [id number] No. of containers..02 Tissue . 01 Material submitted: . PART A: gastrointestinal site - ANTRUM PART B: gastrointestinal site - GASTRIC BODY . 01 Diagnosis: A- STOMACH, ANTRUM, BIOPSY: - ANTRAL GASTRIC MUCOSA WITH MILD CHRONIC GASTRITIS, AND INTESTINAL METAPLASIA. - NO H. PYLORI LIKE ORGANISMS IDENTIFIED (BY THE H/E AND IMMUNOHISTOCHEMICAL STAINED SLIDE SECTIONS). - NEGATIVE FOR DYSPLASIA OR MALIGNANCY. - SEE COMMENT: --- B- A-STOMACH, BIOPSY: - OXYNTIC GASTRIC MUCOSA WITH NO HISTOLOGIC ABNORMALITIES. - NO H. PYLORI LIKE ORGANISMS IDENTIFIED (ON THE H/E-STAINED SECTIONS). - NEGATIVE FOR GASTRITIS, INTESTINAL METAPLASIA, DYSPLASIA OR MALIGNANCY. --- COMMENT: H. PYLORI IMMUNOHISTOCHEMICAL STAIN WAS PERFORMED ON PART A AND IS NEGATIVE. TECHNICAL NOTE: THE IMMUNOHISTOCHEMICAL STAINS REPORTED WERE PERFORMED AT [facility] ([address], [facility] [address]). THEY WERE DEVELOPED AND THEIR PERFORMANCE CHARACTERISTICS DETERMINED BY [employer]. THEY HAVE NOT BEEN CLEARED OR APPROVED BY THE [employer], ALTHOUGH SUCH APPROVAL IS NOT REQUIRED FOR ANALYTE-SPECIFIC REAGENTS OF THIS TYPE. TXN 08/14/2023 1710 Local . 01 Electronically signed: . Tawrenate Roland MD, Pathologist NPI- [id number] . 01 Gross description: . Part A: ANTRUM: Received in formalin are 2 fragment(s) of paulino, soft tissue measuring 0.3 x 0.3 x 0.2 cm to 0.4 x 0.1 x 0.1 cm submitted entirely in 1 cassette(s) Part B: GASTRIC BODY: Received in formalin are 2 fragment(s) of paulino, soft tissue measuring 0.3 x 0.2 x 0.2 cm to 0.4 x 0.2 x 0.2 cm submitted entirely in 1 cassette(s) /IVANIA 08/09/2023 [facility]7 Local . 01 Pathologist provided ICD-10: K21.00, K44.9, Z86.010, Z80.0 . 01 CPT . 256700, 819817, Y32535 Specimen Comment: A courtesy copy of this report has been sent to [phone] Performed at: 01 [facility] [address] [place] [address], [place], [place] [id number] MD Henry Badillo MD Phone: [phone]
[2023-08-08 12:24] VITALS: BP 114/74; PULSE 71; RESP 16; TEMP 36.5; O2SAT 99; BMI 20.9
[2023-08-08] MEDS: LACTATED RINGERS 1,000 ML 42 ML IV (12:46)
--- NOTE | 2023-08-08 13:46 | P.HP_ITS ---
History of Present Illness History of Present Illness Date Patient Seen: 08/08/23 Time Patient Seen: 13:46 Chief complaint: EGD & Colonoscopy w/poss bx's Narrative: Elva is a 72-year-old woman with a history of colon polyps and gastric metaplasia. Her last colonoscopy with Dr. Melchor was in 2018 and a 1 cm tubular adenoma was found in the cecum. Her last EGD with Dr. Melchor was in 2019. [facility] Medical History (Updated 08/08/23 @ 13:48 by Alvino Jacobson MD) Colon polyps Heart murmur History of rheumatic fever Fractures (~1971) Rheumatic fever Mumps Measles Chicken pox Recurrent sinusitis Hearing loss Cataracts, bilateral (~2017) CKD (chronic kidney disease) Hx of breast cancer (~1999) Essential hypertension Hyperlipidemia Surgical History S/P lumpectomy, left breast (~1999) History of colonoscopy Anesthesia History of foot surgery Amputation of finger (~1969) Family History Father History of heart disease Grandfather History of heart disease Grandmother Blood disorder Grandfather History of heart disease Social History marital status: household members: spouse pets and animals: Yes education level: college occupational status: other leisure activities: other seatbelt use: always helmet use: Yes water heater temp set < 120 deg: Yes working smoke detector in home: Yes Smoking Status: Never smoker alcohol intake: current substance use type: does not use during the past year weight has: remained stable well-balanced diet: daily or most days daily servings fruits/ve-4 caffeine: Yes eating out: rarely or never frequency: 1-2 times per week duration: 15-30 minutes/day Meds Home Medications and Allergies Home Medications Medication Instructions Recorded Confirmed Type atorvastatin 10 mg tablet 10 mg PO DAILY 09/08/19 08/08/23 History famotidine 20 mg tablet 40 mg PO DAILY gastritis 08/08/23 08/08/23 History Allergies Allergy/AdvReac Type Severity Reaction Status Date / Time shellfish derived AdvReac Severe severe Verified 04/04/23 15:08 abdominal pain Exam Vital Signs (past 8 hours): - 08/08/23 12:24 Temperature 97.7 F Pulse Rate 71 Respiratory Rate 16 Blood Pressure 114/74 Pulse Oximetry 99 Oxygen Delivery Method Room Air Oxygen Flow Rate 0 Oxygen Delivery Method Room Air Oxygen Flow Rate 0 Const General: No acute distress Resp Effort & Inspection: normal respiratory effort Assessment & Plan Assessment and plan (1) Intestinal metaplasia of gastric mucosa: Status: Acute (2) Colon polyps: Qualifiers: Colon polyp type: adenomatous Colon location: ascending Qualified Code(s): D12.2 - Benign neoplasm of ascending colon Status: Acute Plan We reviewed the risks and benefits of EGD and colonoscopy and she would like to proceed.
--- NOTE | 2023-08-08 14:26 | PM.OP.EC ---
Operative Date/Time/Diagnoses Date of procedure: 08/08/23 Time of procedure: 14:26 Pre-op diagnosis: History of colon polyps and gastric metaplasia Post-op diagnosis: same Procedure & Clinicians Study performed: EGD and colonoscopy Same procedure as scheduled: Yes Surgeon: Alvino Jacobson Procedure Notes Procedure in detail: Surgeon: Alvino Jacobson MD Anesthesia: Marya Jiang CRNA Procedure in detail: A timeout was performed. A bite blocked was placed and monitors were attached to the patient. The patient was positioned in the left lateral decubitus position. Sedation was administered. Once the patient was sedated the endoscope was inserted through the bite block and passed through the esophagus and stomach and into the duodenum. No abnormalities were seen in the duodenal or bulb. We then withdrew the scope into the stomach. No obvious abnormalities were seen but random biopsies were taken from the antrum and the gastric body. The endoscope was retroflexed and a small hiatal hernia was observed. The endoscope was straightned and withdrawn into the esophagus. No further abnormalities were visualized. Findings: Small hiatal hernia Next we repositioned the patient for a colonoscopy. A digital rectal exam was performed and was normal. The colonoscope was inserted and advanced to the cecum. The appendiceal orifice was identified and photographed. The scope was slowly withdrawn over greater than 6 minutes. Abnormalities were found. The scope was retroflexed in the rectum and no abnormalities were seen. Findings: Normal colon EBL: 2 mL Scope withdrawal time: 6 minutes Sedation minutes: 20 minutes Post-procedure Disposition: PACU
[2023-08-08 14:30] VITALS: BP 103/62; PULSE 55; RESP 12; TEMP 36.3; O2SAT 97
[2023-08-08 14:35] VITALS: BP 109/62; PULSE 62; RESP 13; O2SAT 98
[2023-08-08 14:39] VITALS: BP 128/72; PULSE 55; RESP 14; TEMP 36.3; O2SAT 97
[2023-08-08 14:45] VITALS: BP 135/68; PULSE 56; RESP 12; TEMP 36.7; O2SAT 95
== END 2023-08-08 14:54 | disposition home or self-care (01) ==
PROVIDERS: PCP Family Medicine; Referring Provider Surgery; Visit Provider Surgery
PROC: 0DJ08ZZ Inspection of Upper Intestinal Tract, Via Natural or Artificial Opening Endoscopic (ICD-10-PCS; CPT 43235; principal; 2023-08-08 12:45)
PROC: 0DJD8ZZ Inspection of Lower Intestinal Tract, Via Natural or Artificial Opening Endoscopic (ICD-10-PCS; CPT 45378; 2023-08-08 12:45)
DX: Z12.11 Encounter for screening for malignant neoplasm of colon (principal); Z86.010 Personal history of colon polyps; K44.9 Diaphragmatic hernia without obstruction or gangrene; K31.A0 Gastric intestinal metaplasia, unspecified; K29.50 Unspecified chronic gastritis without bleeding
CPT/HCPCS: 43239; G0105; J2704

== ENCOUNTER → 2023-10-03 14:25 | Outpatient (CLI) | payer MEDICARE, OTHER, SELFPAY ==
[2023-10-03 15:16] LABS: Add Manual Diff / Slide Review NO; Basophils Absolute Auto 0 /uL (0-100); Basophils Percent Auto 0.9 % (0-2); Eosinophils Absolute Auto 0 /uL (0-450); Eosinophils Percent Auto 0.2 % (2-4); Hematocrit 38.6 % (36-46); Hemoglobin 13.2 g/dL (12.0-16.0); Lymphocytes Absolute Auto 1000 /uL (1100-4500); Lymphocytes Percent Auto 28.7 % (25-40); Mean Corpuscular HGB Conc 34.1 % (30-36); Mean Corpuscular Hemoglobin 30.9 PG (26-34); Mean Corpuscular Volume 90.7 fL (80-100); Monocytes Absolute Auto 400 /uL (0-900); Monocytes Percent Auto 11.1 % (3-14); Neutrophils Absolute Auto 2100 /uL (1500-7000); Neutrophils Percent Auto 59.1 % (50-75); Platelet Count 162 X10^3/uL (150-400); Red Blood Cell Count 4.26 X10^6/uL (4.0-5.2); Red Cell Distribution Width 14.5 % (11.6-14.8); White Blood Cell Count 3.5 X10^3/uL (4.5-11.0)
[2023-10-03 15:24] LABS: Appearance Urine UA CLEAR; Bilirubin Urine UA NEGATIVE (NEGATIVE); Color Urine UA YELLOW; Glucose Urine UA NEGATIVE (Negative); Ketones Urine UA NEGATIVE (NEGATIVE); Leukocyte Esterase Urine UA NEGATIVE (NEGATIVE); Nitrite Urine UA NEGATIVE (Negative); Occult Blood Urine UA NEGATIVE (Negative); Protein Urine UA NEGATIVE (Negative); Urobilinogen Urine UA 0.2 E.U./dL (0.2)
[2023-10-03 15:28] LABS: pH Urine UA 5.5 (4.5-8.0)
[2023-10-03 15:31] LABS: Bacteria Urine None Seen; Culture Indicated Urine Cult Not Indicated; RBC Urine 0-1/HPF (0-5/HPF); Squamous Epithelial Cell Urine 1-5 /HPF (0-5/HPF); WBC Urine 0-1/HPF (0-5/HPF)
[2023-10-03 15:55] LABS: BUN Creatinine Ratio 15.1 (6-22); Blood Urea Nitrogen 21 mg/dL (7-17); Calcium 9.9 mg/dL (8.4-10.2); Carbon Dioxide 24 mmol/L (22-32); Chloride 107 mmol/L (98-107); Estimated Glomerular Filt Rate 41 mL/min (>60); Glucose 94 mg/dL (80-110); HEMOLYSIS < 15 (0-50); Potassium 3.8 mmol/L (3.4-5.1); Sodium 140 mmol/L (137-145)
[2023-10-03 17:29] LABS: Albumin 4.2 g/dL (3.5-5.0); Phosphorous 4.1 mg/dL (2.8-4.1)
[2023-10-03 18:41] LABS: Creatinine Urine Random 39.7 mg/dL; Protein (Total) Urine Random 36 mg/dL (0-12)
[2023-10-05 11:37] LABS: Parathyroid Hormone Int 41 pg/mL (15-65)
== END ==
PROVIDERS: PCP Family Medicine; Referring Provider Internal Medicine Nephrology; Visit Provider Internal Medicine Nephrology
DX: N18.32 Chronic kidney disease, stage 3b (principal)
CPT/HCPCS: 36415; 80069; 81001; 82570; 83970; 84156; 85025

== ENCOUNTER → 2023-10-11 15:41 | Outpatient (CLI) | payer MEDICARE, OTHER, SELFPAY ==
--- NOTE | 2023-10-11 15:42 | DI.RAD.S_ITS ---
PROCEDURE: XR CHEST 2V INDICATIONS: cough, sore throat, lost voice TECHNIQUE: 2 views of the chest were acquired. COMPARISON: None. FINDINGS: Surgical changes and devices: None. Lungs and pleura: Lungs are clear. No pleural effusions or pneumothorax. Mediastinum: Mediastinal contours are normal. Heart size is normal. Bones and chest wall: No suspicious bony abnormalities. Soft tissues appear unremarkable. Convex left thoracolumbar scoliosis IMPRESSION: No acute cardiopulmonary abnormality is seen. Approved by: Aravind Jeffrey M.D. on 10/11/2023 at 17:15
== END ==
PROVIDERS: PCP Family Medicine; Referring Provider Nurse Practitioner Family; Visit Provider Nurse Practitioner Family
DX: R05.9 Cough, unspecified (principal)
CPT/HCPCS: 71046

== ENCOUNTER → 2023-11-05 14:06 | Outpatient (CLI) | payer MEDICARE, SELFPAY ==
--- NOTE | 2023-11-05 | DI.MG.S_ITS ---
BILATERAL DIGITAL SCREENING MAMMOGRAM 3D/2D WITH CAD: 11/05/2023 CLINICAL: Routine screening. Personal history of left breast cancer. Family History of Breast Cancer. Comparison is made to exams dated: 11/01/2022 mammogram, 10/31/2021 mammogram, and 10/26/2020 mammogram - [facility]. Both breasts are heterogeneously dense, which may obscure small masses (category c / 51-75% glandular tissue). Current study was also evaluated with a Computer Aided Detection (CAD) system. There is a possible oval equal density focal asymmetry in the left breast at 8 o'clock middle depth. This is more prominent. No other significant masses, calcifications, or other findings are seen in either breast. IMPRESSION: INCOMPLETE: NEEDS ADDITIONAL IMAGING EVALUATION The possible oval equal density focal asymmetry in the left breast is indeterminate. Additional views with possible ultrasound are recommended. This exam was interpreted at Station ID: [id number]. NOTE: For mammograms, a report in lay terms will be sent to the patient. Approximately 15% of breast malignancies will not be visualized mammographically. In the management of a palpable breast mass, a negative mammogram must not discourage biopsy of a clinically suspicious lesion. Electronically Signed By: Kane Grant M.D. aty/:11/05/2023 17:43:09 letter sent: Additional Imaging Needed ACR BI-RADS Category 0: Incomplete 3340F
== END ==
LOC: MAMMO 14:09
PROVIDERS: PCP Family Medicine; Referring Provider Family Medicine; Visit Provider Family Medicine
DX: Z12.31 Encounter for screening mammogram for malignant neoplasm of breast (principal); Z85.3 Personal history of malignant neoplasm of breast; Z80.3 Family history of malignant neoplasm of breast; R92.333 Mammographic heterogeneous density, bilateral breasts
CPT/HCPCS: 77063; 77067

== ENCOUNTER → 2023-11-18 11:57 | Outpatient (CLI) | payer MEDICARE, SELFPAY ==
--- NOTE | 2023-11-18 | DI.MG.S_ITS ---
UNILATERAL LEFT DIGITAL DIAGNOSTIC MAMMOGRAM 3D/2D WITH ADDITIONAL VIEWS POST LUMPECTOMY: 11/18/2023 CLINICAL: Additional evaluation requested from prior study. Comparison is made to exams dated: 11/05/2023 mammogram, 11/01/2022 mammogram, and 10/31/2021 mammogram - [facility]. There are scattered areas of fibroglandular density in the left breast (category b / 25%-50% glandular tissue). There is a focal asymmetry in the left breast at 10 o'clock middle depth. This is seen in additional views. No other significant masses or calcifications are seen in the breast. IMPRESSION: INCOMPLETE: NEEDS ADDITIONAL IMAGING EVALUATION The focal asymmetry in the left breast is indeterminate. A targeted ultrasound of the left breast is recommended and will be performed immediately following this exam. This exam was interpreted at Station ID: [id number]. NOTE: For mammograms, a report in lay terms will be sent to the patient. Approximately 15% of breast malignancies will not be visualized mammographically. In the management of a palpable breast mass, a negative mammogram must not discourage biopsy of a clinically suspicious lesion. Electronically Signed By: Kandy silveira/:11/18/2023 12:29:56 ACR BI-RADS Category 0: Incomplete 3340F
--- NOTE | 2023-11-18 11:58 | DI.US.S_ITS ---
LIMITED ULTRASOUND OF LEFT BREAST: 11/18/2023 CLINICAL: Patient returns today to evaluate a focal asymmetry in the left breast. Comparison is made to exams dated: 11/18/2023 mammogram, 11/05/2023 mammogram, 11/01/2022 mammogram, 10/31/2021 mammogram, 10/26/2020 mammogram, and 10/19/2019 mammogram - [facility]. Color flow and real-time ultrasound of the left breast 9 o'clock region were performed on the areas of interest. Lester scale images of the real-time examination were reviewed. There is an irregular complicated cyst in the left breast at 9 o'clock middle depth. This irregular complicated cyst is hypoechoic with internal echoes. This correlates with mammography findings. Color flow imaging demonstrates that there is no vascularity present. IMPRESSION: PROBABLY BENIGN The irregular complicated cyst in the left breast is probably benign. A follow-up ultrasound in 6 months is recommended to demonstrate stability. This exam was interpreted at Station ID: [id number]. Electronically Signed By: Kandy silveira/:11/18/2023 12:49:44 letter sent: Followup Recommended Ultrasound BI-RADS: 3 Probably benign
== END ==
LOC: MAMMO 11:58
PROVIDERS: PCP Family Medicine; Referring Provider Family Medicine; Visit Provider Family Medicine
DX: R92.8 Other abnormal and inconclusive findings on diagnostic imaging of breast (principal); N60.02 Solitary cyst of left breast; R92.322 Mammographic fibroglandular density, left breast
CPT/HCPCS: 76642; 77065; G0279

== ENCOUNTER → 2024-04-09 12:08 | Outpatient (CLI) | payer MEDICARE, SELFPAY ==
[2024-04-09 13:42] LABS: Hemoglobin 13.1 g/dL (12.0-16.0); Mean Corpuscular HGB Conc 33.6 % (30-36); Mean Corpuscular Hemoglobin 31.1 PG (26-34); Mean Corpuscular Volume 92.6 fL (80-100); Platelet Count 159 X10^3/uL (150-400); Red Blood Cell Count 4.21 X10^6/uL (4.0-5.2); White Blood Cell Count 3.2 X10^3/uL (4.5-11.0)
[2024-04-09 14:02] LABS: BUN Creatinine Ratio 15.2 (6-22); Blood Urea Nitrogen 24 mg/dL (7-17); Carbon Dioxide 21 mmol/L (22-32); Chloride 109 mmol/L (98-107); Estimated Glomerular Filt Rate 35 mL/min (>60); Glucose 85 mg/dL (80-110); HEMOLYSIS < 15 (0-50); Iron 105 ug/dL (37-170); Phosphorous 4.3 mg/dL (2.8-4.1); Potassium 4.2 mmol/L (3.4-5.1); Sodium 138 mmol/L (137-145)
[2024-04-09 14:12] LABS: Total Iron Binding Capacity 288 ug/dL (265-497)
[2024-04-09 14:39] LABS: Ferritin 91 ng/mL (11-264)
[2024-04-09 16:32] LABS: Creatinine Urine Random 61.03 mg/dL; Protein (Total) Urine Random 16 mg/dL (0-12); Protein Creatinine Ratio Urine 0.26 GRAM/24H
[2024-04-10 11:11] LABS: Parathyroid Hormone Int 64 pg/mL (15-65)
== END ==
PROVIDERS: PCP Family Medicine; Referring Provider Internal Medicine Nephrology; Visit Provider Internal Medicine Nephrology
DX: N18.31 Chronic kidney disease, stage 3a (principal)
CPT/HCPCS: 36415; 80069; 82570; 82728; 83540; 83550; 83970; 84156; 85027

== ENCOUNTER → 2024-05-26 16:31 | Outpatient (CLI) | payer MEDICARE, SELFPAY ==
--- NOTE | 2024-05-26 16:35 | DI.RAD.S_ITS ---
PROCEDURE: XR FOOT LT MIN 3V INDICATIONS: Foot injury TECHNIQUE: 3 views of the foot were acquired. COMPARISON: [facility], CR, XR FOOT 3+ VIEWS LEFT, 02/19/2024, 12:15. FINDINGS: Bones: No acute or subacute fractures or dislocations. No suspicious bony lesions. Extensive prior fusion procedure likely related to multiple fractures involving the forefoot and midfoot with multiple screws and justin present, all showing no evidence of device loosening or disruption. Soft tissues: No tibiotalar joint effusion. Achilles tendon appears normal. IMPRESSION: No acute bony abnormality. Extensive prior surgical intervention involving the forefoot and midfoot stable over time. Dictated by: Bryn Deluca M.D. on 05/27/2024 at 10:23 Approved by: Bryn Deluca M.D. on 05/27/2024 at 10:25
== END ==
LOC: RAD 16:35
PROVIDERS: PCP Family Medicine; Referring Provider Nurse Practitioner Family; Visit Provider Nurse Practitioner Family
DX: S99.922A Unspecified injury of left foot, initial encounter (principal); Z87.81 Personal history of (healed) traumatic fracture; X58.XXXA Exposure to other specified factors, initial encounter
CPT/HCPCS: 73630

== ENCOUNTER → 2024-09-22 12:21 | Outpatient (CLI) | payer MEDICARE, SELFPAY ==
[2024-09-22 13:44] LABS: Add Manual Diff / Slide Review NO; Basophils Absolute Auto 0 /uL (0-100); Basophils Percent Auto 1.2 % (0-2); Eosinophils Absolute Auto 0 /uL (0-450); Eosinophils Percent Auto 0.9 % (2-4); Hematocrit 40.4 % (36-46); Hemoglobin 13.3 g/dL (12.0-16.0); Lymphocytes Absolute Auto 1200 /uL (1100-4500); Lymphocytes Percent Auto 33.2 % (25-40); Mean Corpuscular Volume 90.9 fL (80-100); Monocytes Absolute Auto 400 /uL (0-900); Monocytes Percent Auto 10.7 % (3-14); Neutrophils Absolute Auto 1900 /uL (1500-7000); Platelet Count 222 X10^3/uL (150-400); Red Blood Cell Count 4.44 X10^6/uL (4.0-5.2); Red Cell Distribution Width 14.6 % (11.6-14.8); White Blood Cell Count 3.6 X10^3/uL (4.5-11.0)
[2024-09-22 13:50] LABS: Appearance Urine UA CLEAR; Bilirubin Urine UA NEGATIVE (NEGATIVE); Color Urine UA YELLOW; Glucose Urine UA NEGATIVE (Negative); Ketones Urine UA NEGATIVE (NEGATIVE); Leukocyte Esterase Urine UA 3+ (NEGATIVE); Nitrite Urine UA NEGATIVE (Negative); Occult Blood Urine UA NEGATIVE (Negative); Protein Urine UA NEGATIVE (Negative); Specific Gravity Urine UA <=1.005 (1.000-1.035); Urobilinogen Urine UA 0.2 E.U./dL (0.2)
[2024-09-22 13:51] LABS: pH Urine UA 5.5 (4.5-8.0)
[2024-09-22 13:59] LABS: Bacteria Urine Many (>30); Culture Indicated Urine Specimen Cultured; RBC Urine None Seen (0-5/HPF); Squamous Epithelial Cell Urine 1-5 /HPF (0-5/HPF); Urine Volume 10mL (spun); WBC Urine 10-30/HPF (0-5/HPF)
[2024-09-22 14:32] LABS: Albumin 4.4 g/dL (3.5-5.0); BUN Creatinine Ratio 16.4 (6-22); Blood Urea Nitrogen 29 mg/dL (7-17); Calcium 9.7 mg/dL (8.4-10.2); Carbon Dioxide 23 mmol/L (22-32); Chloride 105 mmol/L (98-107); Estimated Glomerular Filt Rate 30 mL/min (>60); Glucose 83 mg/dL (80-110); HEMOLYSIS < 15 (0-50); Phosphorous 4.1 mg/dL (2.8-4.1); Potassium 4.4 mmol/L (3.4-5.1); Sodium 137 mmol/L (137-145)
[2024-09-22 14:53] LABS: Creatinine Urine Random 33.44 mg/dL; Protein (Total) Urine Random 25 mg/dL (0-12); Protein Creatinine Ratio Urine 0.74 GRAM/24H
[2024-09-22 15:07] LABS: Ferritin 166 ng/mL (11-264)
[2024-09-24 13:17] LABS: Parathyroid Hormone Int 54 pg/mL (15-65)
== END ==
PROVIDERS: PCP Family Medicine; Referring Provider Internal Medicine Nephrology; Visit Provider Internal Medicine Nephrology
DX: N18.31 Chronic kidney disease, stage 3a (principal)
CPT/HCPCS: 36415; 80069; 81001; 82570; 82728; 83970; 84156; 85025; 87077; 87086; 87186

== ENCOUNTER → 2024-10-08 11:33 | Outpatient (CLI) | payer MEDICARE, SELFPAY ==
[2024-10-08 12:20] LABS: Appearance Urine UA SL CLOUDY; Bilirubin Urine UA NEGATIVE (NEGATIVE); Color Urine UA YELLOW; Glucose Urine UA NEGATIVE (Negative); Ketones Urine UA NEGATIVE (NEGATIVE); Leukocyte Esterase Urine UA 3+ (NEGATIVE); Nitrite Urine UA NEGATIVE (Negative); Occult Blood Urine UA TRACE-INTACT (Negative); Protein Urine UA NEGATIVE (Negative); Specific Gravity Urine UA <=1.005 (1.000-1.035); Urobilinogen Urine UA 0.2 E.U./dL (0.2)
[2024-10-08 12:21] LABS: pH Urine UA 5.5 (4.5-8.0)
[2024-10-08 12:30] LABS: Bacteria Urine Many (>30); RBC Urine 0-1/HPF (0-5/HPF); Squamous Epithelial Cell Urine 1-5 /HPF (0-5/HPF); Urine Volume 10mL (spun); WBC Urine 30-100/HPF (0-5/HPF)
[2024-10-08 12:31] LABS: Culture Indicated Urine Specimen Cultured
[2024-10-08 12:50] LABS: BUN Creatinine Ratio 13.5 (6-22); Blood Urea Nitrogen 23 mg/dL (7-17); Calcium 9.3 mg/dL (8.4-10.2); Carbon Dioxide 24 mmol/L (22-32); Chloride 103 mmol/L (98-107); Estimated Glomerular Filt Rate 31 mL/min (>60); Glucose 97 mg/dL (80-110); HEMOLYSIS < 15 (0-50); Potassium 4.8 mmol/L (3.4-5.1); Sodium 135 mmol/L (137-145)
== END ==
PROVIDERS: PCP Family Medicine; Referring Provider Family Medicine; Visit Provider Family Medicine
DX: N18.9 Chronic kidney disease, unspecified (principal); R30.0 Dysuria; Z79.899 Other long term (current) drug therapy
CPT/HCPCS: 36415; 80048; 81001; 87077; 87086; 87186

== ENCOUNTER → 2024-10-22 12:10 | Outpatient (CLI) | payer MEDICARE, SELFPAY ==
[2024-10-22 12:39] LABS: Appearance Urine UA SL CLOUDY; Bilirubin Urine UA NEGATIVE (NEGATIVE); Color Urine UA YELLOW; Glucose Urine UA NEGATIVE (Negative); Ketones Urine UA NEGATIVE (NEGATIVE); Leukocyte Esterase Urine UA 2+ (NEGATIVE); Nitrite Urine UA POSITIVE (Negative); Occult Blood Urine UA TRACE-INTACT (Negative); Protein Urine UA TRACE (Negative); Specific Gravity Urine UA <=1.005 (1.000-1.035); Urobilinogen Urine UA 0.2 E.U./dL (0.2)
[2024-10-22 12:47] LABS: Bacteria Urine Moderate (10-30); Culture Indicated Urine Specimen Cultured; RBC Urine 5-10/HPF (0-5/HPF); Squamous Epithelial Cell Urine 1-5 /HPF (0-5/HPF); Urine Volume 10mL (spun); WBC Urine 30-100/HPF (0-5/HPF)
== END ==
PROVIDERS: PCP Family Medicine; Referring Provider Family Medicine; Visit Provider Family Medicine
DX: R30.0 Dysuria (principal)
CPT/HCPCS: 81001; 87077; 87086; 87186

== ENCOUNTER → 2024-11-05 15:55 | Outpatient (CLI) | payer MEDICARE, SELFPAY ==
[2024-11-05 17:51] LABS: Appearance Urine UA SL CLOUDY; Bilirubin Urine UA NEGATIVE (NEGATIVE); Color Urine UA YELLOW; Glucose Urine UA NEGATIVE (Negative); Ketones Urine UA NEGATIVE (NEGATIVE); Leukocyte Esterase Urine UA 3+ (NEGATIVE); Nitrite Urine UA NEGATIVE (Negative); Occult Blood Urine UA 3+ (Negative); Protein Urine UA NEGATIVE (Negative); Specific Gravity Urine UA <=1.005 (1.000-1.035); Urobilinogen Urine UA 0.2 E.U./dL (0.2)
[2024-11-05 18:15] LABS: Amorphous Sediment Urine 2+; Bacteria Urine Few (2-10); RBC Urine 5-10/HPF (0-5/HPF); Squamous Epithelial Cell Urine 5-10 /HPF (0-5/HPF); Urine Volume 10mL (spun); WBC Urine 10-30/HPF (0-5/HPF)
[2024-11-05 18:16] LABS: Culture Indicated Urine Specimen Cultured
== END ==
PROVIDERS: PCP Family Medicine; Referring Provider Family Medicine; Visit Provider Family Medicine
DX: R31.9 Hematuria, unspecified (principal)
CPT/HCPCS: 81001; 87077; 87086; 87186

== ENCOUNTER → 2024-11-17 13:47 | Outpatient (CLI) | payer MEDICARE, SELFPAY ==
--- NOTE | 2024-11-17 13:48 | DI.US.S_ITS ---
PROCEDURE: US PELVIC COMPLETE INDICATIONS: PMB WITH EXERTION TECHNIQUE: Real-time scanning was performed of the pelvic organs, with image documentation. Additional endovaginal scanning was necessary due to incomplete visualization of the adnexal and endometrial structures by transabdominal scanning. COMPARISON: None. FINDINGS: Uterus: 5.9 x 2.7 x 3.9 cm. Endometrium measures 2 mm, within normal limits. Ovaries: Not seen bilaterally. Other: No pathologic free abdominal or pelvic fluid. IMPRESSION: No pathologic endometrial thickening. No acute pelvic abnormality by ultrasound. Dictated by: Sergo Ray M.D. on 11/17/2024 at 15:22 Approved by: Sergo Ray M.D. on 11/17/2024 at 15:23
== END ==
PROVIDERS: PCP Family Medicine; Referring Provider Family Medicine; Visit Provider Family Medicine
DX: N95.0 Postmenopausal bleeding (principal)
CPT/HCPCS: 76830; 76856

== ENCOUNTER 2024-11-27 13:47 | Emergency (ER) | payer MEDICARE, SELFPAY ==
[2024-11-27] VITALS (18 sets, daily range): BP systolic 158–192; BP diastolic 74–95; PULSE 56–72; RESP 11–23; TEMP 36.4; O2SAT 97–99; BMI 21.5
--- NOTE | 2024-11-27 14:06 | DI.RAD.S_ITS ---
PROCEDURE: XR CHEST 1V INDICATIONS: chest pain TECHNIQUE: One view of the chest was acquired. COMPARISON: [facility], CR, XR CHEST 2V, 10/11/2023, 15:45. FINDINGS: Surgical changes and devices: None. Lungs and pleura: Lungs are clear. No pleural effusions or pneumothorax. Mediastinum: Mediastinal contours appear normal. Heart size is normal. Bones and chest wall: No suspicious bony lesions. Overlying soft tissues appear unremarkable. IMPRESSION: No acute pulmonary process. Dictated by: Malaika Gerardo M.D. on 11/27/2024 at 14:42 Approved by: Malaika Gerardo M.D. on 11/27/2024 at 14:42
--- NOTE | 2024-11-27 14:06 | EKG_ITS ---
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
[2024-11-27 14:16] LABS: INR 0.9 (0.9-1.3); Prothrombin Time 10.2 SECONDS (9.4-12.5)
[2024-11-27 14:18] LABS: PTT Partial Thromboplastin Tim 31 SECONDS (25.1-36.5)
[2024-11-27 14:20] LABS: Alanine Aminotransferase 22 IU/L (<35); Albumin 4.4 g/dL (3.5-5.0); Albumin Globulin Ratio 1.2 (1.0-2.8); Alkaline Phosphatase 83 U/L (38-126); Aspartate Aminotransferase 43 IU/L (14-36); BUN Creatinine Ratio 15.2 (6-22); Bilirubin Total 0.6 mg/dL (0.2-1.3); Blood Urea Nitrogen 27 mg/dL (7-17); Calcium 9.3 mg/dL (8.4-10.2); Carbon Dioxide 18 mmol/L (22-32); Chloride 107 mmol/L (98-107); Creatine Kinase 50 U/L (30-135); Estimated Glomerular Filt Rate 30 mL/min (>60); Globulin 3.6 g/dL (1.7-4.1); Glucose 132 mg/dL (80-110); HEMOLYSIS 19 (0-50); Lipase 753 U/L (23-300); Magnesium 1.8 mg/dL (1.6-2.3); Potassium 3.9 mmol/L (3.4-5.1); Sodium 135 mmol/L (137-145)
[2024-11-27 14:25] LABS: Add Manual Diff / Slide Review NO; Basophils Absolute Auto 0 /uL (0-100); Eosinophils Absolute Auto 0 /uL (0-450); Eosinophils Percent Auto 0.7 % (2-4); Hematocrit 41.5 % (36-46); Lymphocytes Absolute Auto 1300 /uL (1100-4500); Lymphocytes Percent Auto 32.7 % (25-40); Mean Corpuscular HGB Conc 33.7 % (30-36); Mean Corpuscular Hemoglobin 30.4 PG (26-34); Mean Corpuscular Volume 90.1 fL (80-100); Monocytes Absolute Auto 400 /uL (0-900); Neutrophils Absolute Auto 2200 /uL (1500-7000); Neutrophils Percent Auto 56.6 % (50-75); Platelet Count 176 X10^3/uL (150-400); Red Cell Distribution Width 14.9 % (11.6-14.8); White Blood Cell Count 3.9 X10^3/uL (4.5-11.0)
[2024-11-27 14:32] LABS: NT-proBNP (BNP-Adult 18+) 208 pg/mL (<125); Troponin I < 0.012 ng/mL (0.01-0.034)
[2024-11-27 17:59] LABS: Urine Volume 10mL (spun)
[2024-11-27 18:01] LABS: Bacteria Urine Occasional (0-1); Culture Indicated Urine Specimen Cultured; RBC Urine None Seen (0-5/HPF); Squamous Epithelial Cell Urine 1-5 /HPF (0-5/HPF); WBC Urine 1-5/HPF (0-5/HPF)
--- NOTE | 2024-11-27 18:26 | ED_ITS ---
HPI - Weakness General Chief complaint: Abdominal Pain Stated complaint: Dizziness/Lethargic Time Seen by Provider: 11/27/24 18:25 Source: patient Mode of arrival: Ambulatory History of Present Illness HPI Narrative: 73-year-old female past medical history of hyperlipidemia GERD comes into the ED from home for evaluation of generalized weakness has been ongoing persistent for the past 3 days, states that she was recently diagnosed with a UTI has completed her antibiotic which was ciprofloxacin on Saturday. States that she is also complaining of abdominal pain but no nausea vomiting diarrhea. Patient states that her abdominal pain is still epigastric region states it started after eating food earlier today, has improved since presentation here however describes as a dull ache sensation. Also stating pressure to her lower abdomen, does admit to mild dysuria but improved since previous. She denies any other symptoms such as headache visual disturbances chest pain shortness of breath fever chills or any other GI/ symptoms time. Related Data Home Medications Medication Instructions Recorded Confirmed atorvastatin 10 mg tablet 10 mg PO DAILY 09/08/19 11/09/24 famotidine 20 mg tablet 40 mg PO DAILY gastritis 08/08/23 11/09/24 Previous Rx's Medication Instructions Recorded ciprofloxacin HCl 500 mg tablet 500 mg PO DAILY #28 tabs 11/09/24 ondansetron 4 mg disintegrating 4 mg PO Q8H PRN nausea and 11/27/24 tablet vomiting 5 days #15 tabs Allergies Allergy/AdvReac Type Severity Reaction Status Date / Time shellfish derived AdvReac Severe severe Verified 11/09/24 11:59 abdominal pain Review of Systems Review of Systems Narrative: General: Positive generalized weakness, Denies fever, chills, weight loss HEENT: Denies headache, eye drainage, eye irritation, head trauma, sore throat, voice change Cardiovascular: Denies any chest pain, palpitations, shortness of breath, tachycardia Respiratory: Denies any shortness of breath, cough, wheeze, stridor GI/: Positive lower abdominal pain and epigastric, denies nausea, vomiting, diarrhea, bright red blood per rectum, melanotic stools, urinary frequency, urinary retention, dysuria, hematuria MSK: Denies any joint pain, muscle pains, swelling Skin: Denies any rashes, lesions, discoloration Neuro: Denies any headache, lightheadedness, dizziness, fainting, weakness Psych: Denies SI/HI Patient History Medical History (Updated 11/27/24 @ 19:52 by Héctor Ricks DO) Colon polyps Heart murmur History of rheumatic fever Fractures (~1971) Rheumatic fever Mumps Measles Chicken pox Recurrent sinusitis Hearing loss Cataracts, bilateral (~2017) CKD (chronic kidney disease) Hx of breast cancer (~1999) Essential hypertension Hyperlipidemia Surgical History S/P lumpectomy, left breast (~1999) History of colonoscopy Anesthesia History of foot surgery Amputation of finger (~1969) Family History Father History of heart disease Grandfather History of heart disease Grandmother Blood disorder Grandfather History of heart disease Social History marital status: household members: spouse pets and animals: Yes education level: college occupational status: other leisure activities: other seatbelt use: always helmet use: Yes water heater temp set < 120 deg: Yes working smoke detector in home: Yes Smoking Status: Never smoker alcohol intake: current substance use type: does not use during the past year weight has: remained stable well-balanced diet: daily or most days daily servings fruits/ve-4 caffeine: Yes eating out: rarely or never frequency: 1-2 times per week duration: 15-30 minutes/day Smoking Status: Never smoker alcohol intake frequency: holidays/special occasions only Exam Narrative Exam Narrative: General: Cooperative, comfortable, well-developed, not in acute distress HEENT: Normocephalic, atraumatic, PERRLA, normal sclera, eyelids normal, Neck: Active full range of motion, atraumatic Chest: Normal to inspection, negative crepitus, no overlying erythema ecchymosis Respiratory: Normal respiratory effort, not in acute respiratory distress, clear to auscultation bilaterally negative cough, wheeze, tachypnea, rhonchi, rales Cardiology: Regular rate rhythm negative gallop, murmur, rubs GI/: Normal to inspection, soft, nonrigid, no tenderness to palpation, exam deferred MSK: Full range of active range of motion of all 4 extremities, atraumatic Skin: No rashes lesions noted Neuro: Alert awake oriented x3, moves all 4 extremities spontaneously, cranial nerves intact, able to answer all questions appropriately follows commands appropriately Psych: Cooperative, negative suicidal or homicidal ideations Initial Vital Signs Initial Vital Signs: Vital Signs Pulse Oximetry 99 11/27/24 13:51 Course Orders Ordered: ED Orders 11/27/24 13:55 Complete Blood Count AUTO DIFF Stat Comprehensive Metabolic Panel Stat Lipase Stat Magnesium Stat NT-proBNP (BNP-Adult 18+) Stat PTT Partial Thromboplastin Jaskaran Stat Prothrombin Time INR Stat Troponin & CK Cardiac Panel Stat 11/27/24 14:06 XR chest 1V Stat EKG-12 Lead Stat 11/27/24 17:47 Urine Culture Stat Urine Microscopic Stat 11/27/24 18:27 CT abdomen pelvis wo con Stat Famotidine (Famotidine 20 Mg/2 Ml Vial) 20 mg IV NOW JESSICA Discontinued Medications Aspirin (Aspirin 81 Mg Chew Tab) 324 mg PO NOW ONE Stop: 11/27/24 14:06 Last Admin: 11/27/24 15:00 Dose: Not Given Documented By: JANEEN Vital Signs Vital signs: Vital Signs - 8 hr 11/27/24 13:51 11/27/24 13:52 11/27/24 13:52 Temperature Pulse Rate 68 Respiratory Rate Blood Pressure 192/89 H Pulse Oximetry 99 98 Oxygen Delivery Method 11/27/24 13:58 11/27/24 14:00 11/27/24 14:30 Temperature 97.6 F Pulse Rate 66 64 61 Respiratory Rate 16 20 Blood Pressure 192/89 H Pulse Oximetry 98 97 98 Oxygen Delivery Method Room Air 11/27/24 15:00 11/27/24 15:26 11/27/24 15:26 Temperature Pulse Rate 56 L 60 Respiratory Rate 19 17 Blood Pressure 185/83 H Pulse Oximetry 97 97 Oxygen Delivery Method 11/27/24 15:30 11/27/24 15:30 11/27/24 16:00 Temperature Pulse Rate 60 Respiratory Rate 17 Blood Pressure 178/84 H 158/74 H Pulse Oximetry 97 Oxygen Delivery Method 11/27/24 16:00 11/27/24 16:30 11/27/24 16:30 Temperature Pulse Rate 57 L 58 L Respiratory Rate 16 17 Blood Pressure 162/79 H Pulse Oximetry 97 97 Oxygen Delivery Method 11/27/24 17:00 11/27/24 17:00 11/27/24 17:30 Temperature Pulse Rate 59 L Respiratory Rate 15 Blood Pressure 169/77 H 178/95 H Pulse Oximetry 97 Oxygen Delivery Method 11/27/24 17:30 11/27/24 17:31 11/27/24 17:31 Temperature Pulse Rate 60 58 L Respiratory Rate 14 16 Blood Pressure 191/86 H Pulse Oximetry 98 98 Oxygen Delivery Method 11/27/24 18:00 11/27/24 18:01 11/27/24 18:01 Temperature Pulse Rate 62 72 Respiratory Rate 17 19 Blood Pressure 159/75 H Pulse Oximetry 97 97 Oxygen Delivery Method 11/27/24 18:30 11/27/24 18:30 11/27/24 18:50 Temperature Pulse Rate 63 Respiratory Rate 11 L Blood Pressure 175/80 H 182/78 H Pulse Oximetry 97 Oxygen Delivery Method 11/27/24 18:50 11/27/24 19:00 11/27/24 19:00 Temperature Pulse Rate 67 61 Respiratory Rate 23 13 Blood Pressure 164/74 H Pulse Oximetry 98 97 Oxygen Delivery Method Room Air MDM - Weakness Differential Diagnosis Differential diagnosis: Likely other (ACS, pneumonia, electrolyte, pancreatitis, pyelonephritis) Lab Data 11/27/24 13:55 11/27/24 13:55 Labs: Lab Results 11/27/24 11/27/24 Range/Units 13:55 17:47 WBC 3.9 L (4.5-11.0) X10^3/uL RBC 4.60 (4.0-5.2) X10^6/uL Hgb 14.0 (12.0-16.0) g/dL Hct 41.5 (36-46) % MCV 90.1 (80-100) fL MCH 30.4 (26-34) PG MCHC 33.7 (30-36) % RDW 14.9 H (11.6-14.8) % Plt Count 176 (150-400) X10^3/uL Neut % (Auto) 56.6 (50-75) % Lymph % (Auto) 32.7 (25-40) % [place] % (Auto) 9.0 (3-14) % Eos % (Auto) 0.7 L (2-4) % Baso % (Auto) 1.0 (0-2) % Neut # (Auto) 2200 (8755-3106) /uL Lymph # (Auto) 1300 (1668-9100) /uL [place] # (Auto) 400 (0-900) /uL Eos # (Auto) 0 (0-450) /uL Baso # (Auto) 0 (0-100) /uL PT 10.2 (9.4-12.5) SECONDS INR 0.9 (0.9-1.3) APTT 31 (25.1-36.5) SECONDS Sodium 135 L (137-145) mmol/L Potassium 3.9 (3.4-5.1) mmol/L Chloride 107 (98-107) mmol/L Carbon Dioxide 18 L (22-32) mmol/L BUN 27 H (7-17) mg/dL Creatinine 1.78 H (0.52-1.04) mg/dL Estimated GFR 30 L (>60) mL/min BUN/Creatinine Ratio 15.2 (6-22) Glucose 132 H (80-110) mg/dL Calcium 9.3 (8.4-10.2) mg/dL Magnesium 1.8 (1.6-2.3) mg/dL Total Bilirubin 0.6 (0.2-1.3) mg/dL AST 43 H (14-36) IU/L ALT 22 (<35) IU/L Alkaline Phosphatase 83 (38-126) U/L Total Creatine Kinase 50 (30-135) U/L Troponin I < 0.012 (0.01-0.034) ng/mL NT-Pro-B Natriuret Pep 208 H (<125) pg/mL Total Protein 8.0 (6.3-8.2) g/dL Albumin 4.4 (3.5-5.0) g/dL Globulin 3.6 (1.7-4.1) g/dL Albumin/Globulin Ratio 1.2 (1.0-2.8) Lipase 753 H (23-300) U/L Urine RBC None seen (0-5/HPF) Urine WBC 1-5/hpf (0-5/HPF) Ur Squamous Epith Cells 1-5 /hpf (0-5/HPF) Urine Bacteria Occasional (0-1) (None) Ur Culture Indicated? Specimen cultured Vol Urine Centrifuged 10ml (spun) Urine Dip Bedside Urine Glucose Negative Bedside Urine Bilirubin - Negative Bedside Urine Ketone - Negative Urine Specific [place] 1.005 Bedside Urine Occult Blood - Negative Bedside Urine pH 6.0 Bedside Urine Protein - Negative Bedside Urine Urobilinogen - Negative Bedside Urine Nitrite - Negative Bedside Urine Leukocytes ++ 125 Esterase Imaging Data Chest x-ray: Radiologist Impression: [address] [address] XRay Report Signed Patient: Elva Delgado MR#: [id number] : 1950 Acct:[id number] Age/Sex: 73 / F Date of Service: 11/27/24 Loc: ED Accession Number: [id number] Procedure: XR chest 1V Ordering Provider: Ana Paula Dougherty D.O. PROCEDURE: XR CHEST 1V INDICATIONS: chest pain TECHNIQUE: One view of the chest was acquired. COMPARISON: [facility], , XR CHEST 2V, 10/11/2023, 15:45. FINDINGS: Surgical changes and devices: None. Lungs and pleura: Lungs are clear. No pleural effusions or pneumothorax. Mediastinum: Mediastinal contours appear normal. Heart size is normal. Bones and chest wall: No suspicious bony lesions. Overlying soft tissues appear unremarkable. IMPRESSION: No acute pulmonary process. ECG Data Interpretation: EKG interpreted by ED physician, 60 beats per minute QTC 400 left axis deviation, nonspecific ST changes no STEMI. MDM Narrative Medical decision making narrative: 71-year-old female history of hyper lipidemia GERD came in complaining of lower abdominal pain epigastric pain and some mild generalized weakness has been ongoing persistent for 3 days worsening today. Troponin negative. Patient without any leukocytosis, lipase was noted to be slightly elevated in the 700s. Patient had CT scan performed that was consistent with an acute pancreatitis without cyst or abscess formation. Patient urinalysis not consistent with a urinary tract infection. Patient tolerating secretions tolerating p.o. liquids, patient will be sent home with strict return precautions for pancreatitis, instructed to the only have clears and bowel rest for the next 24-48 hours and instructed to follow up with primary care doctor in the next few days, they state that they have an appointment with her primary care doctor on Saturday. They verbalized understanding of this agrees to being discharged home with outpatient follow up Discharge Plan Departure Patient Disposition: Home Clinical Impression: Pancreatitis Instructions: DI for Pancreatitis Activity Restrictions/Additional Instructions: Please follow up with her primary care doctor and GI in outpatient setting for any pancreatitis Please read the discharge instructions sheet carefully and bring all papers to all doctor follow-up visits, as it may contain information that your doctor may want to see. Disease processes change and evolve, if your symptoms worsen or if you develop any new symptoms that are concerning to you please return for evaluation. Your evaluation today does not show any evidence of any life- threatening/serious illnesses requiring admission to the hospital or surgery. Please follow-up with your doctor for re-evaluation in approximately 1 day. Seek immediate medical attention for any worrisome symptoms. *If you do not have a primary care provider please contact the [facility] Resource line at [phone]. They will ask some questions about your medical history and help get you set up with a doctor in the community. Prescriptions: New ondansetron 4 mg tablet,disintegrating 4 mg PO Q8H PRN (Reason: nausea and vomiting) 5 Days Qty: 15 0RF No Action ciprofloxacin HCl 500 mg tablet 500 mg PO DAILY Qty: 28 0RF atorvastatin 10 mg Tablet 10 mg PO DAILY famotidine 20 mg tablet 40 mg PO DAILY Referrals: Reynaldo Paul MD [Non-Staff] - 1 week Mayela Villalba MD [Primary Care Provider] - Stand Alone Forms: Patient Portal/API/Survey
--- NOTE | 2024-11-27 18:27 | DI.CT.S_ITS ---
PROCEDURE: CT ABDOMEN PELVIS WO CON INDICATIONS: pancreatitis, abd pain TECHNIQUE: Axial sections were acquired from the lung bases to the pubic symphysis. Coronal and sagittal reformats were performed. For radiation dose reduction, the following was used: automated exposure control, adjustment of mA and/or kV according to patient size. COMPARISON: None. FINDINGS: Image quality: Diagnostic. Lower Chest: Bibasilar dependent atelectasis is seen. Heart size is normal, no pericardial effusion. URINARY: Right Kidney: Nonobstructing stones are seen in lower pole right kidney measures 3-4 millimeters in size. Simple appearing right renal cysts are seen. No hydronephrosis or obstructing stones. Right Ureter: No hydroureter. Left Kidney: 3 millimeter nonobstructing stone is seen in upper pole left kidney. No obstructing stones or hydronephrosis. Simple appearing left renal cysts are seen. Left Ureter: No hydroureter. Bladder: Normal wall thickness. No stones. ABDOMEN: Liver: No contour-deforming solid mass. Gallbladder: No radiopaque gallstones or wall thickening. Biliary ducts: No biliary dilation. Pancreas: No ductal dilation. Very mild peripancreatic fat stranding adjacent to body and tail of pancreas is seen. No peripancreatic fluid collection. No discrete pancreatic mass. Spleen: Size is within normal limits. Adrenal Glands: No adrenal nodules. Stomach and Bowel: There is no bowel obstruction. No gastric or small bowel wall thickening. No colonic wall thickening. [id number] fecal stasis in the colon is seen. Appendix is not definitively identified. No focal inflammatory changes are seen in right lower quadrant abdomen. Sigmoid diverticulosis without CT evidence of acute diverticulitis. Peritoneum: No abnormal intraperitoneal fluid. No free air. Ventral Wall: No hernia. Abdominal Nodes: No enlarged retroperitoneal or mesenteric lymph nodes. Vessels: Aorta and inferior vena cava are normal in size. PELVIS: Pelvic Organs: Unremarkable. Pelvic Nodes: Unremarkable. Miscellaneous: No inguinal hernias are seen. Bones: No aggressive appearing bony lesions. No acute vertebral body compression fracture. IMPRESSION: 1. Minimal peripancreatic inflammatory changes adjacent to body and tail of pancreas suggestive of early acute pancreatitis. No peripancreatic fluid collection. No discrete pancreatic mass. 2. Mild constipation. No bowel obstruction or abnormal bowel wall thickening. No free fluid or free air. No secondary CT evidence of acute appendicitis. Sigmoid diverticulosis without CT evidence of acute diverticulitis. 3. Bilateral nonobstructing renal calculi. No hydronephrosis or hydroureter. Dictated by: Abram Quinn M.D. on 11/27/2024 at 19:10 Approved by: Abram Quinn M.D. on 11/27/2024 at 19:13
--- NOTE | 2024-11-27 19:24 | PC.NURSE ---
Pt awake and alert sitting in ED stretcher speaking with . No distress noted at this time. Current plan of care discussed with patient. Pt remiains connected to cardiac, resp, blood pressure, and pulse ox monitors with alarms on and audible. Call light within reach.
== END 2024-11-27 20:13 | disposition home or self-care (01) ==
PROVIDERS: Emergency Medicine; Emergency Provider Student in an Organized Health Care Education/Training Program; Family Provider Family Medicine; PCP Family Medicine
DX: K85.90 Acute pancreatitis without necrosis or infection, unspecified (principal); K21.9 Gastro-esophageal reflux disease without esophagitis; E78.5 Hyperlipidemia, unspecified; Z87.440 Personal history of urinary (tract) infections
CPT/HCPCS: 36415; 71045; 74176; 80053; 81003; 81015; 82550; 83690; 83735; 83880; 84484; 85025; 85610; 85730; 87086; 93005; 99284

== ENCOUNTER → 2025-03-17 11:20 | Outpatient (CLI) | payer MEDICARE, SELFPAY ==
[2025-03-17 12:09] LABS: Add Manual Diff / Slide Review NO; Basophils Absolute Auto 0 /uL (0-100); Basophils Percent Auto 0.9 % (0-2); Eosinophils Absolute Auto 0 /uL (0-450); Eosinophils Percent Auto 0.6 % (2-4); Hematocrit 39.2 % (36-46); Hemoglobin 13.4 g/dL (12.0-16.0); Lymphocytes Absolute Auto 1100 /uL (1100-4500); Lymphocytes Percent Auto 33.8 % (25-40); Mean Corpuscular HGB Conc 34.3 % (30-36); Mean Corpuscular Hemoglobin 31.4 PG (26-34); Mean Corpuscular Volume 91.5 fL (80-100); Monocytes Absolute Auto 300 /uL (0-900); Monocytes Percent Auto 10.3 % (3-14); Neutrophils Absolute Auto 1700 /uL (1500-7000); Neutrophils Percent Auto 54.4 % (50-75); Platelet Count 156 X10^3/uL (150-400); Red Blood Cell Count 4.29 X10^6/uL (4.0-5.2); Red Cell Distribution Width 14.5 % (11.6-14.8); White Blood Cell Count 3.2 X10^3/uL (4.5-11.0)
[2025-03-17 12:27] LABS: Appearance Urine UA CLEAR; Bilirubin Urine UA NEGATIVE (NEGATIVE); Color Urine UA YELLOW; Glucose Urine UA NEGATIVE (Negative); Ketones Urine UA NEGATIVE (NEGATIVE); Leukocyte Esterase Urine UA NEGATIVE (NEGATIVE); Nitrite Urine UA NEGATIVE (Negative); Occult Blood Urine UA NEGATIVE (Negative); Protein Urine UA NEGATIVE (Negative); Specific Gravity Urine UA <=1.005 (1.000-1.035); Urobilinogen Urine UA 0.2 E.U./dL (0.2)
[2025-03-17 12:33] LABS: Bacteria Urine None Seen; RBC Urine None Seen (0-5/HPF); Squamous Epithelial Cell Urine None Seen (0-5/HPF); Urine Volume 10mL (spun); WBC Urine None Seen (0-5/HPF)
[2025-03-17 12:34] LABS: Albumin 4.1 g/dL (3.5-5.0); BUN Creatinine Ratio 16.8 (6-22); Blood Urea Nitrogen 27 mg/dL (7-17); Carbon Dioxide 22 mmol/L (22-32); Chloride 105 mmol/L (98-107); Estimated Glomerular Filt Rate 34 mL/min (>60); Glucose 91 mg/dL (70-99); HEMOLYSIS < 15 (0-50); Phosphorous 3.8 mg/dL (2.8-4.1); Potassium 4.5 mmol/L (3.4-5.1); Sodium 135 mmol/L (137-145)
[2025-03-17 15:50] LABS: Creatinine Urine Random 48.77 mg/dL; Protein (Total) Urine Random 19 mg/dL (0-12); Protein Creatinine Ratio Urine 0.38 GRAM/24H
[2025-03-18 07:09] LABS: Parathyroid Hormone Int 82 pg/mL (15-65)
== END ==
PROVIDERS: Family Provider Family Medicine; PCP Family Medicine; Referring Provider Internal Medicine Nephrology; Visit Provider Internal Medicine Nephrology
DX: N18.32 Chronic kidney disease, stage 3b (principal)
CPT/HCPCS: 36415; 80069; 81001; 82570; 83970; 84156; 85025

== ENCOUNTER → 2025-07-01 12:17 | Outpatient (CLI) | payer MEDICARE, SELFPAY ==
--- NOTE | 2025-07-01 12:21 | DI.MRI.S_ITS ---
PROCEDURE: MR ABDOMEN RENAL PROTOCOL INDICATIONS: ckd TECHNIQUE: Coronal HASTE through abdomen and pelvis; axial 2D FLASH in- and [id number] (with and without fat saturation), and breath-hold T2 FSE from the hepatic dome to the bottom of the kidneys. Coronal HASTE MR urogram of kidneys and bladder. Dynamic coronal VIBE during IV gadolinium administration; postgadolinium axial VIBE or 2D FLASH with fat saturation from the hepatic dome through the kidneys. COMPARISON: [facility], US, US RENAL COMPLETE, 06/18/2025, 12:25. [facility], CT, CT ABDOMEN PELVIS WO CON, 11/27/2024, 18:31. FINDINGS: Image quality: Diagnostic. Lung bases: Unremarkable. Liver: No solid mass. Gallbladder: No gallstones or wall thickening. Biliary ducts: No biliary dilation. Pancreas: No ductal dilation. Spleen: Size is within normal limits. Small cyst or hemangioma. Adrenal Glands: No adrenal nodules. Kidneys and Ureters: No hydronephrosis. No solid mass. Small T2 hyperintense peripelvic and parapelvic renal cysts. Renal atrophy. Stomach and Bowel: Normal colonic caliber, without significant wall thickening. Peritoneum: No abnormal intraperitoneal fluid. No free air. Ventral Wall: No hernia. Abdominal Nodes: No retroperitoneal or mesenteric adenopathy by size criteria. Vessels: Aorta and inferior vena cava are normal in size. Bones: No aggressive osseous abnormality. IMPRESSION: 1. No solid renal mass identified. No suspicious enhancement or restricted diffusion demonstrated. 2. Multiple small T2 hyperintense renal cysts. 3. Renal atrophy. No hydronephrosis. 4. No biliary or pancreatic ductal dilatation. Dictated by: Gabriele Butts M.D. on 07/01/2025 at 15:52 Approved by: Gabriele Butts M.D. on 07/01/2025 at 16:05
== END ==
LOC: MRI 12:20
PROVIDERS: Family Provider Family Medicine; PCP Family Medicine; Referring Provider Family Medicine; Visit Provider Family Medicine
DX: N18.9 Chronic kidney disease, unspecified (principal); N28.1 Cyst of kidney, acquired; N26.1 Atrophy of kidney (terminal)
CPT/HCPCS: 74183; A9579